=== PATIENT | male | born 1955 | race Caucasian/White ===

== ENCOUNTER 2018-05-01 09:11 | Emergency (ER) | payer OTHER ==
--- NOTE | 2018-05-01 09:56 | ED ---
Abdominal Pain/Male - HPI Summary HPI Summary: Patient is a 63-year-old male with history of diverticulitis presenting to the ED with chief complaint of lower abdominal pain, bloating, and distention. Denies any history of abdominal surgeries. Diverticulitis episode was 3 years ago and treated with by mouth antibiotics successfully. He states he has been doing better with his diet, until recently when he began to eat more seedy foods. Denies any nausea or vomiting. Last bowel movement yesterday and normal. He states he has been having regular bowel movements and does not feel he is constipated, however he has decreased gas. Denies any burping. Over the past 2 days, symptoms have been worsening. Pain is noted to be at 7/10, stabbing, constant and better with rest. - History of Current Complaint Chief Complaint: EDAbdPain Stated Complaint: ABD PAIN Hx Obtained From: Patient Onset/Duration: Sudden Onset Timing: Constant Severity Initially: Moderate Severity Currently: Moderate Pain Intensity: 7 Pain Scale Used: 0-10 Numeric Radiates: No Character: Sharp Aggravating Factor(s): Food Associated Signs And Symptoms: Negative: Fever, Cough, Chest Pain, Constipation , Urinary Symptoms, Decreased Appetite, Vomiting - Risk Factors Testicular Torsion: Negative Cardiac Risk Factors: Negative - Allergies/Home Medications Allergies/Adverse Reactions: Allergies Allergy/AdvReac Type Severity Reaction Status Date / Time No Known Allergies Allergy Verified 05/01/18 09:14 Home Medications: Home Medications Albuterol HFA INHALER* [Ventolin HFA Inhaler*] 1 - 2 puff INH Q4HR PRN 05/01/18 [History Confirmed 05/01/18] PMH/Surg Hx/FS Hx/Imm Hx Previously Healthy: Yes Respiratory History: Reports: Hx Chronic Obstructive Pulmonary Disease (COPD), Other Respiratory Problems/Disorders - COPD GI History: Reports: Hx Gastroesophageal Reflux Disease - HEARTBURN Musculoskeletal History: Reports: Other Musculoskeletal History - BILATERAL HANDS R/T BROKEN BONES YEARS AGO Sensory History: Reports: Hx Cataracts - LEFT Denies: Hx Contacts or Glasses, Hx Hearing Aid Opthamlomology History: Reports: Hx Cataracts - LEFT Denies: Hx Contacts or Glasses Psychiatric History: Reports: Hx Anxiety - R/T UPCOMING PROCEDURE - Immunization History Hx Pertussis Vaccination: No Immunizations Up to Date: Unable to Obtain/Confirm Infectious Disease History: No Infectious Disease History: Denies: Traveled Outside the US in Last 30 Days - Social History Occupation: Employed Full-time Lives: Alone Alcohol Use: Daily Alcohol Amount: 2-3beers/day Hx Substance Use: Yes Substance Use Type: Reports: Marijuana Substance Use Comment - Amount & Last Used: occasionally Hx Tobacco Use: Yes Smoking Status (MU): Light Every Day Tobacco Smoker Review of Systems Constitutional: Negative Negative: Fever, Chills, Skin Diaphoresis Negative: Palpitations, Chest Pain Negative: Shortness Of Breath, Cough Positive: Abdominal Pain. Negative: Vomiting, Diarrhea, Nausea Genitourinary: Negative Positive: no symptoms reported, see HPI Negative: Rash Negative: Headache Negative: Anxious All Other Systems Reviewed And Are Negative: Yes Physical Exam Triage Information Reviewed: Yes Vital Signs On Initial Exam: Initial Vitals Temp Pulse Resp BP Pulse Ox 98.3 F 78 16 133/99 95 05/01/18 09:14 05/01/18 09:14 05/01/18 09:14 05/01/18 09:14 05/01/18 09:14 Vital Signs Reviewed: Yes Appearance: Positive: Well-Appearing, Well-Nourished Skin: Positive: Warm, Skin Color Reflects Adequate Perfusion Head/Face: Positive: Normal Head/Face Inspection Eyes: Positive: EOMI, MICKEY, Conjunctiva Clear Neck: Positive: Supple, No Lymphadenopathy Respiratory/Lung Sounds: Positive: Clear to Auscultation, Breath Sounds Present Cardiovascular: Positive: RRR, Pulses are Symmetrical in both Upper and Lower Extremities Abdomen Description: Positive: Soft, Other: - tenderness to lower abdomen Bowel Sounds: Positive: Present Musculoskeletal: Positive: Normal, Strength/ROM Intact Neurological: Positive: Sensory/Motor Intact, Alert, Oriented to Person Place, Time, Speech Normal Psychiatric: Positive: Normal, Affect/Mood Appropriate Diagnostics - Vital Signs Vital Signs Temp Pulse Resp BP Pulse Ox 05/01/18 09:42 73 145/96 96 05/01/18 09:14 98.3 F 78 16 133/99 95 - Laboratory Result Diagrams: 05/01/18 09:52 05/01/18 09:52 Lab Statement: Any lab studies that have been ordered have been reviewed, and results considered in the medical decision making process. Abdominal Pain Fem Course/Dx - Course Course Of Treatment: During the course treatment, the patient is evaluated for lower abdominal pain. He denies any UTI symptoms, however the pain is mostly suprapubically. On physical examination there is diffuse tenderness to the lower abdomen, worse to the left side and denies any pain to the right lower quadrant on deep palpation. While this could be a UTI versus diverticulitis, CT abdomen/pelvis obtained to assess for partial obstruction. Vital signs are stable on arrival. Labs obtained and are unremarkable. CT: IMPRESSION: CT FINDINGS OF UNCOMPLICATED DIVERTICULITIS OF THE SIGMOID COLON. Patient made aware of results. He is given 10 days ciprofloxacin and Flagyl as per uncomplicated diverticulitis protocol. At this time I do not believe he requires admission to the hospital as he is afebrile, complains of 3/10 pain and continues to be able to eat and drink okay. He is given strict return precautions. - Diagnoses Provider Diagnoses: Diverticulitis Discharge - Sign-Out/Discharge Documenting (check all that apply): Discharge/Admit/Transfer - Discharge Plan Condition: Stable Disposition: HOME Prescriptions: Ciprofloxacin TAB* [Cipro 500 MG TAB*] 500 mg PO BID #20 tab metroNIDAZOLE [Flagyl 500 MG TAB] 500 mg PO TID #30 tab Patient Education Materials: Diverticulitis (ED), Diverticulitis Diet (ED) Referrals: King Rivera MD [Primary Care Provider] - Additional Instructions: If he develop any fevers, sweats, chills, worsening pain, nausea, vomiting, return to the ED immediately DO NOT DRINK ANY ALCOHOL WHILE TAKING THIS MEDICATION Please follow-up with your doctor I have given you information on diverticulitis diet - Billing Disposition and Condition Condition: STABLE Disposition: Home
[2018-05-01 10:02] LABS: ABS Basophils 0 10^3/ul (0-0.2); ABS Eosinophils 0.3 10^3/ul (0-0.6); ABS Lymphocytes 1.8 10^3/ul (1.0-4.8); ABS Monocytes 0.9 10^3/ul (0-0.8); ABS Neutrophils 6.2 10^3/ul (1.5-7.7); ABS Nucleated RBC 0 10^3/ul; Hematocrit 50 % (42-52); Lymphocyte % 19.3 % (25-47); Mean Corpuscular HGB Conc 34 g/dl (31-36); Mean Corpuscular Hemoglobin 32 pg (27-31); Mean Corpuscular Volume 94 fL (80-94); Mean Platelet Volume 8.6 um3 (7.4-10.4); Nucleated Red Blood Cells % 0.1; Platelet Count 152 10^3/ul (150-450); Red Blood Count 5.27 10^6/ul (4.00-5.40); Red Cell Distribution Width 13 % (10.5-15); White Blood Count 9.3 10^3/ul (3.5-10.8)
[2018-05-01 10:03] LABS: Urine Appearance Clear; Urine Blood Negative (Negative); Urine Color Yellow; Urine Ketones 1+ (Negative); Urine Protein Negative (Negative); Urine Specific Gravity 1.017 (1.010-1.030); Urine Urobilinogen Negative (Negative)
[2018-05-01 10:18] LABS: EGFR Non-African American 88.9 (>60)
[2018-05-01] MEDS ORDERED: Iohexol 300* (CONTRAST) 10 ML SDV IV ONE (12:04)
--- NOTE | 2018-05-01 12:32 | RAD ---
INDICATION: Abdominal pain.. Small bowel obstruction versus diverticulitis Chronic hepatitis. COMPARISON: CT November 11, 2012 TECHNIQUE: Axial source images were obtained from the hemidiaphragms to the symphysis pubis following administration of oral and intravenous contrast. 100 mL Omnipaque 300 was utilized. Coronal and sagittal reconstructed images were acquired. Lung bases: The lung bases are clear. Liver: The liver is normal in size. There are no masses. There is no ductal dilatation. Gallbladder: There are no calcified gallstones. There is no evidence of wall thickening or pericholecystic fluid. Spleen: The spleen is normal in size. There are no masses. Pancreas: There is no focal pancreatic mass or ductal dilatation. Adrenal glands: There is no evidence of adrenal mass. Kidneys: The kidneys are normal in size and position. There are prompt nephrograms and there is prompt excretion bilaterally. There are no renal parenchymal masses. There is no evidence of nephrolithiasis. Adenopathy: There is no evidence of adenopathy by size criteria. Fluid collections: There is perienteric stranding adjacent to the sigmoid colon (see below). Vessels:There are no significant atherosclerotic changes involving the aorta. There is no focal aneurysm. The iliac vessels are normal in caliber. The IVC appears normal. GI tract: The upper GI tract is unremarkable. There are diverticula of the sigmoid colon. There is mural thickening with perienteric stranding at the level the mid and distal sigmoid colon consistent with acute diverticulitis. There are no findings of obstruction or perforation. Pelvic organs: The prostate and seminal vesicles appear normal Bladder: There are no bladder masses. Abdominal and pelvic soft tissues: The extraperitoneal abdominal and pelvic soft tissues appear normal.. Osseous structures: There are no acute osseous findings. Other: None IMPRESSION: CT FINDINGS OF UNCOMPLICATED DIVERTICULITIS OF THE SIGMOID COLON.
[2018-05-01 13:27] VITALS: BP 141/97
== END 2018-05-01 13:26 | disposition home or self-care (01) ==
LOC: ED 09:11
DX: K57.32 Diverticulitis of large intestine without perforation or abscess without bleeding (principal); F17.200 Nicotine dependence, unspecified, uncomplicated
CPT/HCPCS: 36415; 74177; 80053; 81003; 83605; 83690; 83735; 85025; 86140; 99282; Q9967

== ENCOUNTER 2018-05-25 18:53 | Emergency (ER) | payer OTHER ==
[2018-05-25] MEDS ORDERED: Albuterol/Ipratropium NEB.SOL* Albuterol 2.5 MG/Ipratropium 0.5 MG 3 ML ONE (19:50)
--- NOTE | 2018-05-25 19:51 | RAD ---
INDICATION: Short of breath COMPARISON: November 11, 2015 TECHNIQUE: PA and lateral dual-energy views were obtained. FINDINGS: Bones/Soft Tissues: There are no acute bony findings. There is osteopenia with kyphosis Cardiomediastinal: The cardiomediastinal silhouette is normal. Lungs: There are no infiltrates. There is mild hyperinflation Pleura: There are no pleural effusions. Other: None IMPRESSION: HYPERINFLATION. NO ACTIVE DISEASE
[2018-05-25] MEDS ORDERED: Albuterol 2.5 MG/3 ML NEB.SOL* (0.083%) INH ONE (19:55)
[2018-05-25] MEDS ORDERED: methylPREDNISolone 125 MG* 2 ML VIAL IV ONE (19:56)
[2018-05-25] MEDS ORDERED: Albuterol/Ipratropium NEB.SOL* Albuterol 2.5 MG/Ipratropium 0.5 MG 3 ML INH ONE (19:56)
--- NOTE | 2018-05-25 20:06 | ED ---
Shortness of Breath - HPI Summary HPI Summary: This patient is a 63 year old M presenting to [facility] with a chief complaint of SOB since 4 or 5 days ago. He endorses productive cough, SOB, left lateral CP secondary to cough. Pt denies fever, smoking in last 4 days, O2 use at home, and previous intubation. He endorses using symbicort, and that his last cigarette was 4 days ago. No 02 at home, never intubated, uses symbicort. Pt denies PMHx [place]. - History of Current Complaint Chief Complaint: EDShortnessOfBreath Time Seen by Provider: 05/25/18 19:48 Hx Obtained From: Patient Onset/Duration: Gradual Onset, Lasting Days, Still Present Current Severity: Severe Dyspnea At: Rest Aggrevating Factors: Other - cough Alleviating Factors: Nothing Associated Signs & Symptoms: Cough (Productive), Wheezing, Chest Pain w/Cough - Allergy/Home Medications Allergies/Adverse Reactions: Allergies Allergy/AdvReac Type Severity Reaction Status Date / Time No Known Allergies Allergy Verified 05/01/18 09:14 PMH/Surg Hx/FS Hx/Imm Hx Endocrine/Hematology History: Denies: Hx Diabetes Cardiovascular History: Denies: Hx Hypertension Respiratory History: Reports: Hx Chronic Obstructive Pulmonary Disease (COPD), Other Respiratory Problems/Disorders - COPD GI History: Reports: Hx Gastroesophageal Reflux Disease - HEARTBURN Musculoskeletal History: Reports: Other Musculoskeletal History - BILATERAL HANDS R/T BROKEN BONES YEARS AGO Sensory History: Reports: Hx Cataracts - LEFT Denies: Hx Contacts or Glasses, Hx Hearing Aid Opthamlomology History: Reports: Hx Cataracts - LEFT Denies: Hx Contacts or Glasses Psychiatric History: Reports: Hx Anxiety - R/T UPCOMING PROCEDURE Infectious Disease History: No Infectious Disease History: Denies: Traveled Outside the [place] in Last 30 Days - Family History Known Family History: Negative: Cardiac Disease, Other - [place] - Social History Alcohol Use: Daily Alcohol Amount: 2-3beers/day Hx Substance Use: Yes Substance Use Type: Reports: Marijuana Substance Use Comment - Amount & Last Used: occasionally Hx Tobacco Use: Yes Smoking Status (MU): Light Every Day Tobacco Smoker Review of Systems Negative: Fever Positive: Chest Pain - secondary to cough Positive: Shortness Of Breath, Cough - productive All Other Systems Reviewed And Are Negative: Yes Physical Exam - Summary Physical Exam Summary: Appearance: Well appearing, no pain distress Skin: warm, dry, reflects adequate perfusion Head/face: normal Eyes: EOMI, MICKEY ENT: normal Neck: supple, non-tender Respiratory: bilateral wheeze, breath sounds present Cardiovascular: RRR, pulses symmetrical Abdomen: non-tender, soft Bowel: present Musculoskeletal: normal, strength/ROM intact Neuro: normal, sensory motor intact, A&Ox3 Triage Information Reviewed: Yes Vital Signs On Initial Exam: Initial Vitals Temp Pulse Resp BP Pulse Ox 98.1 F 86 24 129/99 93 05/25/18 19:02 05/25/18 19:02 05/25/18 19:02 05/25/18 19:02 05/25/18 19:02 Vital Signs Reviewed: Yes Diagnostics - Vital Signs Vital Signs Temp Pulse Resp BP Pulse Ox 05/25/18 19:02 98.1 F 86 24 129/99 93 - Laboratory Result Diagrams: 05/25/18 20:03 05/25/18 20:03 Lab Statement: Any lab studies that have been ordered have been reviewed, and results considered in the medical decision making process. - Radiology CXR Xray Interpretation: No Acute Changes Radiology Interpretation Completed By: Radiologist - Hyperinflation, no active disease. Dr. Garcia has reviewed this report. - EKG 1930 Cardiac Rate: NL - 71 EKG Rhythm: Sinus Rhythm EKG Interpretation: no acute changes EKG Comparison: No Significant Change Course/Dx - Course Course Of Treatment: A 63-year-old M presents to the ED with a CC of SOB for te past 4-5 days. (+) SOB, productive cough, and CP secondary to cough. (-) fever, cigarette in past 4 days, previous intubation. PMHx COPD, emphyseam. A CXR reveals hyperinflation but is otherwise (-). An EKG reveals sinus rythym 71 BPM , no acute changes. In the ED course, pt was given ventolin, duoneb, and solumedrol. - Diagnoses Provider Diagnoses: COPD exacerbation - Physician Notifications Discussed Care of Patient With: Jacy Lord Time Discussed With Above Provider: 21:34 Instructed by Provider To: Other - Dr. Lord will evaluate pt in ED. Discharge - Sign-Out/Discharge Documenting (check all that apply): Patient Departure - discharge - Discharge Plan Condition: Stable Disposition: HOME Prescriptions: Albuterol HFA INHALER* [Ventolin HFA Inhaler*] 2 puff INH Q6H PRN #1 mdi MDD 3 PRN Reason: Sob/Wheezing Azithromycin TAB* [Zithromax TAB (Z-TIRSO) 250 mg #6 tabs] 250 mg PO DAILY #4 tab Budesonide/Formote 160/4.5(NF) [Symbicort 160/4.5 (NF)] 1 puff INH BID #1 mdi predniSONE [Prednisone 20 MG TAB] 60 mg PO ONCE #5 tablet Patient Education Materials: COPD (Chronic Obstructive Pulmonary Disease) (ED) Referrals: King Rivera MD [Primary Care Provider] - 3 Days Additional Instructions: RETURN TO THE EMERGENCY DEPARTMENT FOR ANY NEW OR WORSENING SYMPTOMS. - Billing Disposition and Condition Condition: STABLE Disposition: Home
[2018-05-25 20:17] LABS: ABS Basophils 0 10^3/ul (0-0.2); ABS Lymphocytes 2.1 10^3/ul (1.0-4.8); ABS Monocytes 0.8 10^3/ul (0-0.8); ABS Neutrophils 3.5 10^3/ul (1.5-7.7); ABS Nucleated RBC 0 10^3/ul; Eosinophil % 13.5 % (0-6); Hematocrit 48 % (42-52); Hemoglobin 16.3 g/dl (14.0-18.0); Lymphocyte % 28.3 % (25-47); Mean Corpuscular HGB Conc 34 g/dl (31-36); Mean Corpuscular Hemoglobin 32 pg (27-31); Mean Corpuscular Volume 93 fL (80-94); Mean Platelet Volume 8.7 um3 (7.4-10.4); Nucleated Red Blood Cells % 0.1; Platelet Count 153 10^3/ul (150-450); Red Blood Count 5.13 10^6/ul (4.00-5.40); Red Cell Distribution Width 13 % (10.5-15); White Blood Count 7.4 10^3/ul (3.5-10.8)
[2018-05-25 20:41] LABS: EGFR Non-African American 82.3 (>60)
[2018-05-25] MEDS ORDERED: Azithromycin TAB* 250 MG PO ONE (22:56)
[2018-05-25] MEDS ORDERED: Azithromycin TAB* 250 MG ONE (22:58)
[2018-05-25 23:08] VITALS: BP 118/68
--- NOTE | 2018-05-26 01:28 | CONS ---
CC: King Rivera MD * CONSULTATION REPORT: DATE OF CONSULT: 05/25/18 TIME OF EVALUATION: 2099 PRIMARY CARE PHYSICIAN: King Rivera MD REQUESTING PHYSICIAN FOR CONSULT: Dr. Garcia. REASON FOR CONSULT: Evaluation for admission. HISTORY OF PRESENT ILLNESS: This is a 63-year-old male with past medical history of COPD, on room air and tobacco use who presented to the emergency room with 3 days of shortness of breath. The patient states he has been short of breath for the past 1-1/2 weeks but it got more significant over the past 3 days. He quit smoking and drinking 3 days ago. He has been smoking for about a pack a day for the past 3 years off and on. He has had increase in cough, sputum production. No chest pain. No nausea, vomiting, diarrhea. No diaphoresis. No abdominal pain. No fevers or chills. He does have an albuterol nebulizer that he was using at home but no improvement. He states he has Symbicort. He was using Symbicort but then he was switched to another inhaler that does not work as well as Symbicort. He called trying to get back to Symbicort, but they were unable to do so. He came to the emergency room for further evaluation. In the emergency room, the patient had labs, imaging. He was given Solu-Medrol, DuoNeb and was referred to the hospitalist service for further evaluation. PAST MEDICAL HISTORY: 1. COPD, on room air. 2. History of diverticulitis. MEDICATIONS: 1. Albuterol nebulizer as needed. 2. He is also on another inhaler, he is not sure of the name. 3. Claritin as needed. ALLERGIES: No known drug allergies. FAMILY HISTORY: Reviewed and noncontributory. SOCIAL HISTORY: The patient works construction. As mentioned, he quit smoking 3 days ago due to shortness of breath, but he does smoke a pack per day for the past 3 years off and on. He does drink 2 to 3 beers or whiskey a day. His healthcare proxy is his daughter, Yu Mosqueda. CODE STATUS: Full code. REVIEW OF SYSTEMS: A 14-point review of systems as mentioned in the HPI, otherwise negative. PHYSICAL EXAM: Vitals: Temp 98, pulse rate 86, respiratory rate 24, oxygen saturation 98% on room air, blood pressure 139/99. General: In no acute distress, intermittently coughing. HEENT: Head is normocephalic. Pupils are equal and reactive. Anicteric. Oropharynx: Mucous membranes are moist. Neck : Supple. No lymphadenopathy. Cardiac: Regular rate and rhythm. Soft systolic murmur heard throughout. Respiratory: Diminished breath sounds. Prolonged expiratory phase. Faint bilateral expiratory wheezing. No increased work of breathing, no retractions. Abdomen: Soft, nondistended, nondistended. Extremities: No clubbing, cyanosis, or edema. +2 DPs. Neurologic: Alert and oriented x3. No gross focal neurologic deficits. DIAGNOSTIC STUDIES/LAB DATA: White count 7.4, hemoglobin 16.3, hematocrit 48, platelets 153,000. Sodium 140, potassium 4.3, chloride 106, bicarb 26, BUN 13, creatinine 0.93, glucose 101, troponin is 0, BNP is 44. Radiographic data: Chest x-ray shows hyperinflation. No active disease. EKG shows normal sinus rhythm, left anterior fascicular block. No significant changes. ASSESSMENT AND PLAN: This is a 63-year-old male with past medical history of chronic obstructive pulmonary disease and tobacco use, who presented to the emergency room with shortness of breath and cough. The patient on room air at rest. Respiratory therapist came and ambulated him for 6 minutes. His saturations remained above 91%. He does not meet criteria for admission. No evidence of respiratory distress. DIAGNOSIS: Chronic obstructive pulmonary disease exacerbation likely secondary to a viral illness. I recommended discharge with close followup with Dr. Rivera including prescription at home for steroids, antibiotics, cough suppressants and to continue with albuterol nebulizer and inhaler with a chamber as needed for shortness of breath and wheezing. I discussed my recommendations with Dr. Garcia who is going to send him home. The patient discussed that he is going to quit smoking and quit drinking as well. This was an eye machine scallop cutter for him and I agreed that this will be beneficial for him. TIME SPENT: Greater than 40 minutes were spent doing the consultation, more than half the time spent in direct patient contact. [id number]/[facility] #: [id number] MTDD
== END 2018-05-25 23:07 | disposition home or self-care (01) ==
LOC: ED 18:53
DX: J44.1 Chronic obstructive pulmonary disease with (acute) exacerbation (principal); R05 Cough; R07.89 Other chest pain; F17.200 Nicotine dependence, unspecified, uncomplicated
CPT/HCPCS: 36415; 71046; 80053; 83605; 83880; 84484; 85025; 87040; 93005; 96374; 99284; A9270-GY; J2930

== ENCOUNTER 2018-10-17 07:17 | Day surgery (SDC) | payer OTHER ==
[~2018-10-17 07:17] MED LIST: Acetaminophen TAB* 325 MG PO PRN; Buffered Lidocaine 0.9% SYRIN* 5 ML/SYR SYRINGE INTRADERM ONE
[2018-10-17] MEDS ORDERED: Midazolam* 1 MG/ML 2 ML VIAL (2 MG) ONE (07:57)
[2018-10-17] MEDS ORDERED: fentaNYL* 50 MCG/ML 2 ML VIAL (100 MCG VIAL) ONE (07:57)
[2018-10-17] MEDS ORDERED: Cyclopentolate 1% OPTH.SOL* 2 ML BTL ONE (08:41)
[2018-10-17] MEDS ORDERED: Tropicamide 1% OPTH.SOL* BTL ONE (08:41)
[2018-10-17] MEDS ORDERED: acetaZOLAMIDE TAB* 250 MG ONE (08:41)
[2018-10-17] MEDS ORDERED: Povidone Iodine 5% OPTH* 30 ML BTL ONE (08:41)
[2018-10-17] MEDS ORDERED: Lidocaine 1%* 5 ML VIAL ONE (08:41)
[2018-10-17] MEDS ORDERED: Ketorolac 0.5% OPHTH (NF) 0.5 % 5 ML BTL ONE (08:41)
[2018-10-17] MEDS ORDERED: Tetracaine 0.5% OPTH.SOL 4 ML* 1 DROP BTL ONE (08:41)
[2018-10-17] MEDS ORDERED: Phenylephrine 2.5% OPTH.SOL* 2 ML BTL ONE (08:41)
[2018-10-17] MEDS ORDERED: Neomycin/Polymy/Dex OPHTH.OIN* 3.5 GM ONE (08:41)
[2018-10-17 08:49] VITALS: BP 115/81
--- NOTE | 2018-10-17 11:03 | OP ---
DATE OF OPERATION: 10/17/18 - [facility] DATE OF : 57. SURGEON: Reji Hager MD. ANESTHESIA: Monitored anesthesia care. PREOPERATIVE DIAGNOSIS: Cataract, right eye. POSTOPERATIVE DIAGNOSIS: Cataract, right eye. OPERATIVE PROCEDURE: Extracapsular cataract extraction of the right eye with intraocular lens implant. IMPLANT: SN60WF 20.0 diopter lens to the right eye. COMPLICATIONS: None. DESCRIPTION OF PROCEDURE: The patient was given phenylephrine 2.5 % and cyclopentolate 1% eye drops to the operative eye in the preoperative area. The patient was taken to the operating room where a time-out was taken to identify the correct patient, site, and side of surgery. The patient's right eye was prepped and draped in the usual sterile fashion with 5% Betadine. A second time- out was taken to verify the correct patient, side, and site of surgery, as well as the correct lens implant. A lid speculum was placed to the right eye. A 1mm paracentesis blade was used to make a clear corneal incision. Preservative-free 1% lidocaine was injected into the anterior chamber. DisCoVisc was then injected into the anterior chamber. A 2.75 mm keratome blade was used to make a triplanar incision. A cystotome initiated a capsulorrhexis, which was completed with Utrata forceps in a continuous and curvilinear manner. Hydrodissection of the lens was performed with BSS on a cannula. The lens could be spun in a capsular bag. The phacoemulsification handpiece was used with a divide-and- conquer technique to remove the nucleus. The I/A handpiece then removed the residual cortical lens material. DisCoVisc was injected to inflate the capsular bag. The planned SN60WF 20.0 diopter lens was injected into the capsular bag. The residual DisCoVisc was removed from the eye with the I/A handpiece. The corneal incisions were hydrated and no leaks occurred at physiologic pressure around 20 mmHg per palpation. The lid speculum was removed and drapes were removed. Maxitrol ointment was placed to the surface of the operative eye. An adhesive patch and shield was then placed on the operative eye. The patient was taken to the postoperative area in stable condition. [id number]/[facility] #: [id number] [facility]
== END 2018-10-17 09:01 | disposition home or self-care (01) ==
LOC: OREAST 07:17
PROVIDERS: ATTEND Student in an Organized Health Care Education/Training Program
DX: H25.11 Age-related nuclear cataract, right eye (principal); H20.012 Primary iridocyclitis, left eye; H35.342 Macular cyst, hole, or pseudohole, left eye; J45.909 Unspecified asthma, uncomplicated; F17.210 Nicotine dependence, cigarettes, uncomplicated
CPT/HCPCS: A9270-GY; J2250; J3010; V2632

== ENCOUNTER 2019-02-19 11:06 | Emergency (ER) | payer SELFPAY ==
[2019-02-19] MEDS ORDERED: Albuterol/Ipratropium NEB.SOL* Albuterol 2.5 MG/Ipratropium 0.5 MG 3 ML INH ONE (11:31)
[2019-02-19] MEDS ORDERED: methylPREDNISolone 125 MG* 2 ML VIAL IV ONE (11:31)
--- NOTE | 2019-02-19 11:34 | ED ---
Shortness of Breath - HPI Summary HPI Summary: This patient is a 64 year old M presenting to [facility] with a chief complaint of increased SOB since 2 weeks ago. The patient reports his symptoms worsened today at 07:00. Symptoms aggravated by nothing. Symptoms alleviated by nothing. Patient reports productive cough with clear sputum and chest tightness. Patient uses albuterol inhaler but notes that he ran out 2-3 days ago because his insurance lapsed. Patient also takes symbicort. - History of Current Complaint Chief Complaint: EDShortnessOfBreath Time Seen by Provider: 02/19/19 11:24 Hx Obtained From: Patient Onset/Duration: Gradual Onset, Lasting Weeks - 2 weeks, Worse Since - 07:00 Timing: Constant Current Severity: Moderate Dyspnea At: Rest Aggrevating Factors: Nothing Alleviating Factors: Nothing Associated Signs & Symptoms: Cough (Productive), Chest Pain w/Cough - Allergy/Home Medications Allergies/Adverse Reactions: Allergies Allergy/AdvReac Type Severity Reaction Status Date / Time No Known Allergies Allergy Verified 10/17/18 07:25 PMH/Surg Hx/FS Hx/Imm Hx Endocrine/Hematology History: Denies: Hx Diabetes Cardiovascular History: Denies: Hx Hypertension, Other Cardiovascular Problems/Disorders Respiratory History: Reports: Hx Chronic Obstructive Pulmonary Disease (COPD), Other Respiratory Problems/Disorders - COPD GI History: Reports: Hx Gastroesophageal Reflux Disease - HEARTBURN Musculoskeletal History: Reports: Other Musculoskeletal History - BILATERAL HANDS R/T BROKEN BONES YEARS AGO Sensory History: Reports: Hx Cataracts - [place], Hx Contacts or Glasses - readers Denies: Hx Hearing Aid Opthamlomology History: Reports: Hx Cataracts - [place], Hx Contacts or Glasses - readers Neurological History: Denies: Other Neuro Impairments/Disorders Psychiatric History: Reports: Hx Anxiety - Surgical History Surgery Procedure, Year, and Place: left cataract, 2013 Hx Anesthesia Reactions: No Infectious Disease History: No Infectious Disease History: Reports: Hx Hepatitis - hep c Denies: Traveled Outside the [place] in Last 30 Days - Family History Known Family History: Negative: Cardiac Disease, Other - [place] - Social History Alcohol Use: Daily Alcohol Amount: 2-3beers/day Hx Substance Use: Yes Substance Use Type: Reports: Marijuana Substance Use Comment - Amount & Last Used: not now Hx Tobacco Use: Yes Smoking Status (MU): Light Every Day Tobacco Smoker Amount Used/How Often: 5-6 cigs per day Review of Systems Negative: Fever Negative: Epistaxis Positive: Chest Pain - chest tightness Positive: Shortness Of Breath, Cough - productive with clear sputum Negative: Vomiting All Other Systems Reviewed And Are Negative: Yes Physical Exam - Summary Physical Exam Summary: Appearance: The patient is well-nourished in no acute distress and in no acute pain. Skin: The skin is warm and dry and skin color reflects adequate perfusion. HEENT: The head is normocephalic and atraumatic. The pupils are equal and reactive. The conjunctivae are clear and without drainage. Nares are patent and without drainage. Mouth reveals moist mucous membranes and the throat is without erythema and exudate. The external ears are intact. The ear canals are patent and without drainage. The tympanic membranes are intact. Neck: The neck is supple with full range of motion and non-tender. There are no carotid bruits. There is no neck vein distension. Respiratory: Chest is non-tender. Increased AP diameter, Increased E to I ratio , and diffuse expiratory wheezes Cardiovascular: Heart is regular rate and rhythm. There is no murmur or rub auscultated. There is no peripheral edema and pulses are symmetrical and equal. Abdomen: The abdomen is soft and non-tender. There are normal bowel sounds heard in all four quadrants and there is no organomegaly palpated. Musculoskeletal: There is no back tenderness noted. Extremities are non-tender with full range of motion. There is good capillary refill. There is no peripheral edema or calf tenderness elicited. Neurological: Patient is alert and oriented to person, place and time. The patient has symmetrical motor strength in all four extremities. Cranial nerves are grossly intact. Deep tendon reflexes are symmetrical and equal in all four extremities. Psychiatric: The patient has an appropriate affect and does not exhibit any anxiety or depression Triage Information Reviewed: Yes Vital Signs On Initial Exam: Initial Vitals Temp Pulse Resp BP Pulse Ox 98.3 F 92 24 152/89 95 02/19/19 11:08 02/19/19 11:08 02/19/19 11:08 02/19/19 11:08 02/19/19 11:08 Vital Signs Reviewed: Yes Diagnostics - Vital Signs Vital Signs Temp Pulse Resp BP Pulse Ox 02/19/19 11:08 98.3 F 92 24 152/89 95 - Laboratory Result Diagrams: 02/19/19 11:27 02/19/19 11:27 Lab Statement: Any lab studies that have been ordered have been reviewed, and results considered in the medical decision making process. - Radiology CXR Radiology Interpretation Completed By: Radiologist Summary of Radiographic Findings: IMPRESSION: 1. FINDINGS CONSISTENT WITH COPD , NO EVIDENCE FOR ACUTE DISEASE. 2. MULTIPLE CHRONIC DORSAL VERTEBRAL BODY COMPRESSION FRACTURES. Dr. Bishop has reviewed this report. - EKG 11:16 Cardiac Rate: NL - at 84 bpm EKG Rhythm: Sinus Rhythm ST Segment: Normal Ectopy: None Summary of EKG Findings: Sinus rhythm at 84 bpm, no ectopy, nml ST, no STEMI Course/Dx - Course Course Of Treatment: Mr. Whiting presented with a concern that his COPD is getting out of control. He's been having a little bit of a flareup with no symptoms of recent infection. He recently lost his insurance and so his meds have petered out and he is now out of all of his respiratory medications. They were helping. He was nontoxic in appearance with stable vitals on arrival but clearly suffering from COPD and somewhat tight. He improved a lot with a simple DuoNeb and Solu-Medrol while workup revealed no sign of an acute infectious process. Urgent Rx helped to bridge him as he thinks he will be getting his insurance back in the next couple of weeks. I recommended close follow-up with his PCP and to return for any problems. - Diagnoses Provider Diagnoses: COPD exacerbation Discharge - Sign-Out/Discharge Documenting (check all that apply): Patient Departure - discharge home Patient Received Moderate/Deep Sedation with Procedure: No - Discharge Plan Condition: Stable Disposition: HOME Prescriptions: Albuterol 0.5% CONC NEB.MONA* 1 mg .SEE ORDER Q6HR #120 neb.soln Albuterol 0.5% CONC NEB.MONA* 1 mg .SEE ORDER Q6HR #120 neb.soln Albuterol HFA INHALER* [Ventolin HFA Inhaler*] 1 puff INH Q4H PRN #1 mdi PRN Reason: Shortness Of Breath Albuterol HFA INHALER* [Ventolin HFA Inhaler*] 1 puff INH Q4H PRN #1 mdi PRN Reason: Shortness Of Breath methylPREDNISolone [Medrol Dosepak 4 MG*] 4 mg PO .SEE TIRSO INSTRUCTION #1 tab methylPREDNISolone [Medrol Dosepak 4 MG*] 4 mg PO .SEE TIRSO INSTRUCTION #1 tab Patient Education Materials: COPD (Chronic Obstructive Pulmonary Disease) (ED) Referrals: King Rivera MD [Primary Care Provider] - 2 Days Additional Instructions: Follow up with your primary care physician in 2-3 days. Return to the emergency room with any new or worsening symptoms. - Billing Disposition and Condition Condition: STABLE Disposition: Home - Attestation Statements Document Initiated by Scribe: Yes Documenting Scribe: Trina Henriquez Provider For Whom Fan is Documenting (Include Credential): Sameer Bishop MD Scribe Attestation: Trina Juan, scribed for Sameer Bishop MD on 02/19/19 at 6. Scribe Documentation Reviewed: Yes Provider Attestation: The documentation as recorded by the Trina rouse accurately reflects the service I personally performed and the decisions made by Sameer ariza MD Status of Scribe Document: Viewed
[2019-02-19 11:41] LABS: ABS Basophils 0.1 10^3/ul (0-0.2); ABS Eosinophils 0.6 10^3/ul (0-0.6); ABS Lymphocytes 1.1 10^3/ul (1.0-4.8); ABS Monocytes 0.8 10^3/ul (0-0.8); ABS Neutrophils 2.6 10^3/ul (1.5-7.7); ABS Nucleated RBC 0 10^3/ul; Eosinophil % 11.4 %; Hematocrit 50 % (36-46); Hemoglobin 16.9 g/dL (14.0-18.0); Lymphocyte % 20.7 %; Mean Corpuscular HGB Conc 34 g/dL (31-36); Mean Corpuscular Hemoglobin 32 pg (27-31); Mean Corpuscular Volume 94 fL (80-94); Mean Platelet Volume 8.3 fL (7.4-10.4); Nucleated Red Blood Cells % 0; Platelet Count 174 10^3/uL (150-450); Red Blood Count 5.29 10^6 /uL (4.18-5.48); Red Cell Distribution Width 13 % (10.5-15); White Blood Count 5.1 10^3/uL (3.5-10.8)
[2019-02-19 11:58] LABS: Albumin/Globulin Ratio 1.4 (1-3); BUN/Creatinine Ratio 9.8 (8-20); C Reactive Protein 3.07 mg/L (<8.01); Calcium 9.4 mg/dL (8.6-10.3); EGFR African American 100.5 (>60); EGFR Non-African American 83.1 (>60); Globulin 2.9 g/dL (2-4); Potassium 4.4 mmol/L (3.5-5.0); Total Bilirubin 0.5 mg/dL (0.2-1.0); Total Protein 6.9 g/dL (6.4-8.9)
[2019-02-19 13:36] VITALS: BP 140/88
== END 2019-02-19 13:34 | disposition home or self-care (01) ==
LOC: ED 11:06
DX: J44.1 Chronic obstructive pulmonary disease with (acute) exacerbation (principal); R07.9 Chest pain, unspecified; R06.02 Shortness of breath; R05 Cough; F17.210 Nicotine dependence, cigarettes, uncomplicated; K21.9 Gastro-esophageal reflux disease without esophagitis
CPT/HCPCS: 36415; 71046; 80053; 83605; 84484; 85025; 86140; 87040; 93005; 96374; 99283; A9270-GY; J2930

== ENCOUNTER 2019-02-22 10:08 | Emergency (ER) | payer SELFPAY ==
--- NOTE | 2019-02-22 10:23 | ED ---
Upper Extremity Pain - HPI Summary HPI Summary: A 64 y/o M presents to ED with c/o pain to LUE posterior forearm by wrist onset two days ago. Pt was seen in [facility] on 02/19/19 and had an IV placed on his dorsal L forearm and the vein blew. Now that area is hard and painful. Associated sx: mild tingling to L fingers. Denies fever, chills, pain to the rest of the LUE. PMHx: COPD. Denies PMHx CA or blood clots. Hes feeling much better since his visit on 02/19/19. - History of Current Complaint Chief Complaint: EDExtremityUpper Stated Complaint: VEIN INJURY FROM IV PER PT Time Seen by Provider: 02/22/19 10:13 Hx Obtained From: Patient Mechanism Of Injury: Blunt Trauma Onset/Duration: Started Days Ago, Still Present Timing: Constant Severity Initially: Mild Severity Currently: Mild Pain Location: Forearm - L Associated Signs & Symptoms: Positive: Numbness/Tingling - L fingers, Other - neg: chills, pain to the LUE. Negative: Fever - Allergies/Home Medications Allergies/Adverse Reactions: Allergies Allergy/AdvReac Type Severity Reaction Status Date / Time No Known Allergies Allergy Verified 02/22/19 10:15 PMH/Surg Hx/FS Hx/Imm Hx Previously Healthy: No Endocrine/Hematology History: Denies: Hx Diabetes Cardiovascular History: Denies: Hx Hypertension, Other Cardiovascular Problems/Disorders Respiratory History: Reports: Hx Chronic Obstructive Pulmonary Disease (COPD), Other Respiratory Problems/Disorders - COPD GI History: Reports: Hx Gastroesophageal Reflux Disease - HEARTBURN Musculoskeletal History: Reports: Other Musculoskeletal History - BILATERAL HANDS R/T BROKEN BONES YEARS AGO Sensory History: Reports: Hx Cataracts - [place], Hx Contacts or Glasses - readers Denies: Hx Hearing Aid Opthamlomology History: Reports: Hx Cataracts - [place], Hx Contacts or Glasses - readers Neurological History: Denies: Other Neuro Impairments/Disorders Psychiatric History: Reports: Hx Anxiety - Surgical History Surgery Procedure, Year, and Place: left cataract, 2013 Hx Anesthesia Reactions: No Infectious Disease History: No Infectious Disease History: Reports: Hx Hepatitis - hep c Denies: Traveled Outside the [place] in Last 30 Days - Family History Known Family History: Negative: Cardiac Disease, Other - [place] - Social History Occupation: Works From/At Home - SELF Lives: Alone Alcohol Use: Daily Alcohol Amount: 2-3beers/day Hx Substance Use: Yes Substance Use Type: Reports: Marijuana Substance Use Comment - Amount & Last Used: not now Hx Tobacco Use: Yes Smoking Status (MU): Light Every Day Tobacco Smoker Amount Used/How Often: 5-6 cigs per day Review of Systems Negative: Fever, Chills Musculoskeletal: Other - pos: pain to L forearm near wrist, no other pain to LUE Positive: Numbness - "tingling" to L fingers All Other Systems Reviewed And Are Negative: Yes Physical Exam - Summary Physical Exam Summary: Appearance: Well-appearing, Well-nourished, lying in bed comfortable Skin: Warm, dry, no obvious rash. Apparent superficial phlebitis of dorsal superficial vein about the L wrist and a couple inches into the forearm, no tenderness nor swelling proximal to that, the area is not erythematous or warm to suggest infection. Eyes: sclera anicteric, no conjunctival pallor ENT: mucous membranes moist Neck: deferred Respiratory: No signs of respiratory distress Cardiovascular: Appears well perfused, pulses are nml Abdomen: deferred Musculoskeletal: Moving all 4 extremities without obvious discomfort Neurological: Awake and alert, mentation is normal, speech is fluent and appropriate Psychiatric: affect is normal, does not appear anxious or depressed Triage Information Reviewed: Yes Vital Signs On Initial Exam: Initial Vitals Temp Pulse Resp BP Pulse Ox 97.8 F 65 18 169/105 95 02/22/19 10:09 02/22/19 10:09 02/22/19 10:09 02/22/19 10:09 02/22/19 10:09 Vital Signs Reviewed: Yes Diagnostics - Vital Signs Vital Signs Temp Pulse Resp BP Pulse Ox 02/22/19 10:09 97.8 F 65 18 169/105 95 - Laboratory Lab Statement: Any lab studies that have been ordered have been reviewed, and results considered in the medical decision making process. - Ultrasound No standard instances Ultrasound Interpretation Completed By: Radiologist Summary of Ultrasound Findings: TRACE US IMPRESSION: No evidence of deep venous thrombosis of the left upper extremity is present. ED provider has reviewed this report. Course/Dx - Course Course Of Treatment: Pt is a 64 y/o M presenting with L posterior forearm/wrist pain and hardness after blown IV at [facility] on 02/19/19. Limited PE finds apparent superficial phlebitis of dorsal superficial vein about the L wrist and a couple inches into the forearm, no tenderness nor swelling proximal to that, the area is not erythematous or warm to suggest infection. LUE US shows no DVT. Will discharge patient home. - Diagnoses Provider Diagnoses: Superficial thrombophlebitis of arm Discharge - Sign-Out/Discharge Documenting (check all that apply): Patient Departure - DC Patient Received Moderate/Deep Sedation with Procedure: No - Discharge Plan Condition: Good Disposition: HOME Patient Education Materials: Superficial Thrombophlebitis (ED) Referrals: King Rivera MD [Primary Care Provider] - 1 Week (if not healing well) Additional Instructions: I do not expect this to get any worse, if it does, we should see you back here. - Billing Disposition and Condition Condition: GOOD Disposition: Home - Attestation Statements Document Initiated by Fan: Yes Documenting Scribe: Julisa Garcia Provider For Whom Fan is Documenting (Include Credential): Dr. Sameer Lin MD Scribe Attestation: I, maría Sandersed for Dr. Sameer Lin MD on 02/25/19 at 0622. Scribe Documentation Reviewed: Yes Provider Attestation: The documentation as recorded by the Julisa rouse accurately reflects the service I personally performed and the decisions made by me, Dr. Sameer Lin MD Status of Scribe Document: Viewed
[2019-02-22 12:12] VITALS: BP 179/99
== END 2019-02-22 12:09 | disposition home or self-care (01) ==
LOC: ED 10:08
DX: I80.8 Phlebitis and thrombophlebitis of other sites (principal); F17.210 Nicotine dependence, cigarettes, uncomplicated
CPT/HCPCS: 99282

== ENCOUNTER 2019-03-11 16:16 | Emergency (ER) | payer SELFPAY ==
[2019-03-11] MEDS ORDERED: methylPREDNISolone 125 MG* 2 ML VIAL IV ONE (16:56)
[2019-03-11] MEDS ORDERED: NS 0.9% 1000 ML** 1,000 ML IV ONE (16:56)
--- NOTE | 2019-03-11 16:59 | ED ---
Shortness of Breath - HPI Summary HPI Summary: This patient is a 64 year old M presenting to ED with a chief complaint of shortness of breath since four/five days ago. The patient rates the pain 5/10 in severity. Symptoms aggravated at nighttime and lying flat on bed. Symptoms alleviated by nothing. Patient reports productive cough and insomnia. Patient denies fever and chest pain. Patient also has an itchy rash on the left neck spreading upwards to the left ear and back of neck. PMHx of COPD, but no DM, HTN. PSHx of left cataract. No FHx of cardiac disease or [place]. Patient drinks alcohol daily, uses marijuana, and smoked tobacco until 6 days ago. - History of Current Complaint Chief Complaint: EDShortnessOfBreath Time Seen by Provider: 03/11/19 16:42 Hx Obtained From: Patient Onset/Duration: Lasting Days - 4-5 days Current Severity: Mild Dyspnea At: Orthopena Aggrevating Factors: Recumbent Position, Nothing - Night Alleviating Factors: Nothing Associated Signs & Symptoms: Negative - Fever, chest pain, Cough (Productive) - Allergy/Home Medications Allergies/Adverse Reactions: Allergies Allergy/AdvReac Type Severity Reaction Status Date / Time No Known Allergies Allergy Verified 03/11/19 16:24 PMH/Surg Hx/FS Hx/Imm Hx Previously Healthy: No Endocrine/Hematology History: Denies: Hx Diabetes Cardiovascular History: Denies: Hx Hypertension, Other Cardiovascular Problems/Disorders Respiratory History: Reports: Hx Chronic Obstructive Pulmonary Disease (COPD) GI History: Reports: Hx Gastroesophageal Reflux Disease - HEARTBURN Musculoskeletal History: Reports: Other Musculoskeletal History - BILATERAL HANDS R/T BROKEN BONES YEARS AGO Sensory History: Reports: Hx Cataracts - [place], Hx Contacts or Glasses - readers Denies: Hx Hearing Aid Opthamlomology History: Reports: Hx Cataracts - [place], Hx Contacts or Glasses - readers Neurological History: Denies: Other Neuro Impairments/Disorders Psychiatric History: Reports: Hx Anxiety - Surgical History Surgery Procedure, Year, and Place: left cataract, 2012 Hx Anesthesia Reactions: No Infectious Disease History: No Infectious Disease History: Reports: Hx Hepatitis - hep c Denies: Traveled Outside the [place] in Last 30 Days - Family History Known Family History: Positive: Other - Negative [place] Negative: Cardiac Disease - Social History Alcohol Use: Daily Alcohol Amount: 2-3beers/day Hx Substance Use: Yes Substance Use Type: Reports: Marijuana Substance Use Comment - Amount & Last Used: not now Hx Tobacco Use: Yes Smoking Status (MU): Light Every Day Tobacco Smoker Amount Used/How Often: 5-6 cigs per day Review of Systems Constitutional: Other - Cannot lay flat on bed, unable to sleep Negative: Fever Negative: Chest Pain Positive: Shortness Of Breath - Worse at night, Cough - Bringing up phlegm Positive: Rash - Left side of neck Psychological: Other - Insomnia All Other Systems Reviewed And Are Negative: Yes Physical Exam - Summary Physical Exam Summary: VITAL SIGNS: Reviewed. GENERAL: Patient is a well-developed and nourished male who is lying comfortable in the stretcher. Patient is not in any acute respiratory distress. HEAD AND FACE: No signs of trauma. No ecchymosis, hematomas or skull depressions. No sinus tenderness. EYES: PERRLA, EOMI x 2, No injected conjunctiva, no nystagmus. EARS: Hearing grossly intact. Ear canals and tympanic membranes are within normal limits. MOUTH: Oropharynx within normal limits. NECK: Supple, trachea is midline, no adenopathy, no JVD, no carotid bruit, no c- spine tenderness, neck with full ROM. CHEST: Symmetric, no tenderness at palpation LUNGS: Decreased breath sounds bilaterally, diffuse wheezing. CVS: Regular rate and rhythm, S1 and S2 present, no murmurs or gallops appreciated. ABDOMEN: Soft, non-tender. No signs of distention. No rebound no guarding, and no masses palpated. Bowel sounds are normal. EXTREMITIES: FROM in all major joints, no edema, no cyanosis or clubbing. NEURO: Alert and oriented x 3. No acute neurological deficits. Speech is normal and follows commands. SKIN: Dermatitis on left side of neck. Triage Information Reviewed: Yes Vital Signs On Initial Exam: Initial Vitals Temp Pulse Resp BP Pulse Ox 97.1 F 76 20 158/97 92 03/11/19 16:22 03/11/19 16:22 03/11/19 16:22 03/11/19 16:22 03/11/19 16:22 Vital Signs Reviewed: Yes Diagnostics - Vital Signs Vital Signs Temp Pulse Resp BP Pulse Ox 03/11/19 16:22 97.1 F 76 20 158/97 92 - Laboratory Result Diagrams: 03/11/19 16:45 05/04/19 16:45 Lab Statement: Any lab studies that have been ordered have been reviewed, and results considered in the medical decision making process. - Radiology CXR Radiology Interpretation Completed By: Radiologist Summary of Radiographic Findings: FINDINGS CONSISTENT WITH COPD, NO EVIDENCE FOR ACUTE DISEASE. Dr. Ruiz has reviewed this radiology report. - EKG 1638 Cardiac Rate: NL - 71 EKG Rhythm: Sinus Rhythm ST Segment: Normal EKG Comparison: No Significant Change - Similar to EKG taken 02/19/2019 Summary of EKG Findings: NSR at 71BPM without ST elevations, similar to EKG taken 02/19/2019 1922 Cardiac Rate: NL - 69 BPM EKG Rhythm: Sinus Rhythm ST Segment: Normal EKG Comparison: No Significant Change - Similar to EKG taken at 1638 today. Summary of EKG Findings: NSR at 69 BPM, no ST elevations, similar to EKG taken at 1638 today. Re-Evaluation - Re-Evaluation First Eval Re-Evaluation Time: 19:49 Comment: Patient still has decreased breath sounds with slight wheezing, O2 sat 93%. Course/Dx - Course Assessment/Plan: This patient is a 64-year-old male who presents to the emergency department with a chief complaint of shortness of breath. The patient has been having these symptoms for the last 5 days. He reports productive cough without any fever. Patient has history of COPD. In the ED course the patient was given an IV access, the patient was given IV fluids, Solu -Medrol, and DuoNebs for his COPD exacerbation. Test results without any significant abnormality, troponin 0.00. Chest x-ray impression: Findings consistent with COPD. No evidence for acute disease. In reexamination the patient is having slight wheezing therefore the patient was given another DuoNeb. After these medications were given the symptoms have improved. The patient is saturating 94 and 95% on room air. Therefore the patient was discharged home with follow-up with PCP. The patient will be given a prescription for albuterol INH and prednisone. I discussed all the findings and test results with the patient. Patient was instructed to return to the emergency room immediately if any of the symptoms return or worsens . Plan of care was discussed with the patient and understands and agrees. All questions were answered at patient satisfaction. There were no further complaints or concerns. Lung exam before discharge: CTA B/L. Good air exchange. No wheezing or crackles heard. CVS: S1 and S2 present. No murmurs appreciated. Patient is alert and oriented x 3. Patient is hemodynamically stable. Patient will be discharged home with follow up loss mitigation specialist in the next 2-3 days - Diagnoses Provider Diagnoses: COPD exacerbation Discharge - Sign-Out/Discharge Documenting (check all that apply): Patient Departure - Discharge Patient Received Moderate/Deep Sedation with Procedure: No - Discharge Plan Condition: Stable Disposition: HOME Prescriptions: Albuterol HFA INHALER* [Ventolin HFA Inhaler*] 1 puff INH Q4H PRN #1 mdi PRN Reason: Shortness Of Breath predniSONE TAB* [Deltasone 20 MG TAB*] 40 mg PO DAILY #8 tab Patient Education Materials: COPD (Chronic Obstructive Pulmonary Disease) (ED) Referrals: King Rivera MD [Primary Care Provider] - 3 Days Additional Instructions: Follow-up with your primary care provider in 3 days. RETURN THE ER FOR CHANGING OR WORSENING SYMPTOMS. - Billing Disposition and Condition Condition: STABLE Disposition: Home - Attestation Statements Document Initiated by Jenaibe: Yes Documenting Scribe: Alf Garces Provider For Whom Fan is Documenting (Include Credential): King Ruiz MD Scribe Attestation: IAlf, scribed for King Ruiz MD on 03/11/19 at 2130. Scribe Documentation Reviewed: Yes Provider Attestation: The documentation as recorded by the Alf rouse accurately reflects the service I personally performed and the decisions made by me, King Ruiz MD Status of Scribe Document: Viewed
[2019-03-11 17:11] LABS: ABS Eosinophils 0.7 10^3/ul (0-0.6); ABS Lymphocytes 1.6 10^3/ul (1.0-4.8); ABS Monocytes 0.6 10^3/ul (0-0.8); Eosinophil % 11.5 %; Hematocrit 47 % (42-52); Hemoglobin 15.9 g/dL (14.0-18.0); Lymphocyte % 26.9 %; Mean Corpuscular HGB Conc 34 g/dL (31-36); Mean Corpuscular Hemoglobin 31 pg (27-31); Mean Corpuscular Volume 93 fL (80-94); Mean Platelet Volume 8.1 fL (7.4-10.4); Nucleated Red Blood Cells % 0.1; Platelet Count 169 10^3/uL (150-450); Red Blood Count 5.06 10^6 /uL (4.18-5.48); Red Cell Distribution Width 13 % (10.5-15); White Blood Count 5.9 10^3/uL (3.5-10.8)
[2019-03-11 17:22] LABS: Albumin 3.8 g/dL (3.2-5.2); Albumin/Globulin Ratio 1.3 (1-3); BUN/Creatinine Ratio 14.3 (8-20); C Reactive Protein 4.06 mg/L (<8.01); Calcium 9.2 mg/dL (8.6-10.3); EGFR African American 123.5 (>60); Globulin 2.9 g/dL (2-4); Potassium 4.2 mmol/L (3.5-5.0); Total Bilirubin 0.4 mg/dL (0.2-1.0); Total Protein 6.7 g/dL (6.4-8.9)
[2019-03-11 17:27] LABS: CKMB ng/mL 2.2 ng/mL (0.6-6.3)
[2019-03-11] MEDS: Albuterol/Ipratropium NEB.SOL* Albuterol 2.5 MG/Ipratropium 0.5 MG 3 ML INH SCH ×3 (18:10→18:33)
[2019-03-11] MEDS ORDERED: Albuterol/Ipratropium NEB.SOL* Albuterol 2.5 MG/Ipratropium 0.5 MG 3 ML INH ONE (20:02)
[2019-03-11 21:22] VITALS: BP 148/87
== END 2019-03-11 21:21 | disposition home or self-care (01) ==
LOC: ED 16:16
DX: J44.1 Chronic obstructive pulmonary disease with (acute) exacerbation (principal); K21.9 Gastro-esophageal reflux disease without esophagitis; F17.210 Nicotine dependence, cigarettes, uncomplicated
CPT/HCPCS: 36415; 71046; 80053; 82550; 82553; 83605; 83880; 84484; 85025; 86140; 87040; 93005; 96361; 96374; 99283; A9270-GY; J2930

== ENCOUNTER 2019-04-08 00:47 | Inpatient (IN) | payer SELFPAY ==
[2019-04-08] MEDS ORDERED: methylPREDNISolone 125 MG* 2 ML VIAL IV ONE (01:12)
[2019-04-08] MEDS ORDERED: Albuterol/Ipratropium NEB.SOL* Albuterol 2.5 MG/Ipratropium 0.5 MG 3 ML INH ONE ×4 (01:12→08:45)
--- NOTE | 2019-04-08 01:19 | ED ---
Shortness of Breath - HPI Summary HPI Summary: The patient is a 64 y/o M presenting to [facility] with a chief complaint of sudden onset SOB tonight. He reports that he was working near mold, pollen, and pesticides today, and he also notes that he smoked a few cigarettes. He additionally c/o productive cough and mid-sternal chest tightness. The pain is currently rated 8/10 in severity. Hx of GERD, COPD. No hx of [place]. Doesn't use O2 at home, but O2 in the ED alleviates the hypoxia. - History of Current Complaint Chief Complaint: EDShortnessOfBreath Time Seen by Provider: 04/08/19 01:07 Hx Obtained From: Patient Onset/Duration: Sudden Onset, Lasting Hours, Still Present Timing: Constant Current Severity: Severe Dyspnea At: Rest Aggrevating Factors: Other - was near pollen, mold, and pesticides today Alleviating Factors: Nothing Associated Signs & Symptoms: Cough (Productive), Chest Pain Unrelated to Cough - mid-sternal tightness - Allergy/Home Medications Allergies/Adverse Reactions: Allergies Allergy/AdvReac Type Severity Reaction Status Date / Time No Known Allergies Allergy Verified 04/08/19 00:50 PMH/Surg Hx/FS Hx/Imm Hx Endocrine/Hematology History: Denies: Hx Diabetes Cardiovascular History: Denies: Hx Hypertension, Other Cardiovascular Problems/Disorders Respiratory History: Reports: Hx Chronic Obstructive Pulmonary Disease (COPD) GI History: Reports: Hx Gastroesophageal Reflux Disease - [facility] Musculoskeletal History: Reports: Other Musculoskeletal History - BILATERAL HANDS R/T BROKEN BONES YEARS AGO Sensory History: Reports: Hx Cataracts - [place], Hx Contacts or Glasses - readers Denies: Hx Hearing Aid Opthamlomology History: Reports: Hx Cataracts - [place], Hx Contacts or Glasses - readers Neurological History: Denies: Other Neuro Impairments/Disorders Psychiatric History: Reports: Hx Anxiety - Surgical History Surgery Procedure, Year, and Place: left cataract, 2013 Hx Anesthesia Reactions: No Infectious Disease History: No Infectious Disease History: Reports: Hx Hepatitis - hep c Denies: Traveled Outside the [place] in Last 30 Days - Family History Known Family History: Positive: Blood Disorder, Other - Negative [place] Negative: Cardiac Disease - Social History Alcohol Use: Daily Alcohol Amount: 2-3beers/day Hx Substance Use: Yes Substance Use Type: Reports: Marijuana Substance Use Comment - Amount & Last Used: not now Hx Tobacco Use: Yes Smoking Status (MU): Light Every Day Tobacco Smoker Amount Used/How Often: 5-6 cigs per day Review of Systems Positive: Chest Pain - mid-sternal tightness Positive: Shortness Of Breath, Cough - productive, Other - wheezing All Other Systems Reviewed And Are Negative: Yes Physical Exam - Summary Physical Exam Summary: Appearance: Well appearing, no pain distress Skin: warm, dry, reflects adequate perfusion Head/face: normal Eyes: EOMI, MICKEY ENT: normal Neck: supple, non-tender Respiratory: bilateral wheeze, breath sounds present Cardiovascular: RRR, pulses symmetrical Abdomen: non-tender, soft Musculoskeletal: normal, strength/ROM intact Neuro: normal, sensory motor intact, A&Ox3 Triage Information Reviewed: Yes Vital Signs On Initial Exam: Initial Vitals Temp Pulse Resp BP Pulse Ox 96.7 F 92 20 162/107 91 04/08/19 00:48 04/08/19 00:48 04/08/19 00:48 04/08/19 00:48 04/08/19 00:48 Vital Signs Reviewed: Yes Diagnostics - Vital Signs Vital Signs Temp Pulse Resp BP Pulse Ox 04/08/19 00:48 96.7 F 92 20 162/107 91 - Laboratory Result Diagrams: 04/08/19 01:20 04/08/19 01:20 Lab Statement: Any lab studies that have been ordered have been reviewed, and results considered in the medical decision making process. - EKG 0131 Cardiac Rate: NL - 64 BPM EKG Rhythm: Sinus Rhythm Summary of EKG Findings: No ST elevations Re-Evaluation - Re-Evaluation First Eval Re-Evaluation Time: 03:30 Comment: The patient is feeling better at this time. Course/Dx - Course Assessment/Plan: The patient is a 64 y/o M presenting to [facility] with a chief complaint of sudden onset SOB tonight after working near mold, pollen, and pesticides during the day. He also smoked a few cigarettes and now has productive cough and mid-sternal chest tightness. Upon physical exam, the patient exhibits bilateral wheeze. In the ED course, the patient was administered Solu-Medrol, Zithromax, and Duoneb. Blood work obtained. EKG reveals NSR at 64 BPM. CXR reveals no acute infiltrate. At 0600, Dr. Rangel, hospitalist, spoke with the patient in the ED. At 0615, the patient does not want to be admitted because of costs. He wants to wait until 0800 to see if he is feeling better. He is diagnosed with COPD exacerbation, hypoxia, and respiratory failure. The patient is a sign-out to Dr. King Ruiz MD, from Dr. Alexis Garcia MD at change of shift at 0700 pending possible admission. - Diagnoses Differential Diagnosis/HQI/PQRI: Positive: Bronchitis, COPD Exacerbation, Pneumonia Provider Diagnoses: COPD exacerbation, Hypoxia, Respiratory failure - Physician Notifications Discussed Care of Patient With: Jaclyn Rangel - hospitalist Time Discussed With Above Provider: 06:00 Instructed by Provider To: Other - I spoke with Dr. Rangel concerning the patient's case. She agrees to see the patient in the ED. At 0615, the patient doesn't want to be admitted, and he wants to wait until 0800 to decide. - Critical Care Time Critical Care Time: 30-74 min Discharge - Sign-Out/Discharge Documenting (check all that apply): Sign-Out Patient Signing out patient TO: King Ruiz - Patient is a sign-out to Dr. Ruiz at shift change pending possible admisison. Patient Received Moderate/Deep Sedation with Procedure: No - Discharge Plan Condition: Stable Prescriptions: Albuterol HFA INHALER* [Ventolin HFA Inhaler*] 2 puff INH Q6H PRN #1 mdi MDD 4 PRN Reason: Sob/Wheezing Azithromycin TAB* [Zithromax TAB (Z-TIRSO) 250 mg #6 tabs] 250 mg PO DAILY #4 tab methylPREDNISolone [Medrol] 4 mg PO ONCE #1 tab.ds.pk Referrals: King Rivera MD [Primary Care Provider] - - Billing Disposition and Condition Condition: STABLE - Attestation Statements Document Initiated by Scribe: Yes Documenting Scribe: Lyn George Provider For Whom Fan is Documenting (Include Credential): Dr. Alexis Garcia MD Scribe Attestation: Lyn Juan scribed for Dr. Alexis Garcia MD on 04/08/19 at 0628. Scribe Documentation Reviewed: Yes Provider Attestation: The documentation as recorded by the Lyn rouse accurately reflects the service I personally performed and the decisions made by me, Dr. Alexis Garcia MD Status of Scribe Document: Viewed
[2019-04-08 01:35] LABS: ABS Eosinophils 0.7 10^3/ul (0-0.6); ABS Lymphocytes 1.7 10^3/ul (1.0-4.8); ABS Monocytes 0.6 10^3/ul (0-0.8); ABS Neutrophils 2.7 10^3/ul (1.5-7.7); Eosinophil % 12.6 %; Hematocrit 47 % (42-52); Hemoglobin 15.7 g/dL (14.0-18.0); Lymphocyte % 28.6 %; Mean Corpuscular HGB Conc 33 g/dL (31-36); Mean Corpuscular Hemoglobin 31 pg (27-31); Mean Corpuscular Volume 94 fL (80-94); Mean Platelet Volume 8.5 fL (7.4-10.4); Nucleated Red Blood Cells % 0.1; Platelet Count 163 10^3/uL (150-450); Red Blood Count 4.99 10^6 /uL (4.18-5.48); Red Cell Distribution Width 14 % (10.5-15); White Blood Count 5.8 10^3/uL (3.5-10.8)
[2019-04-08 01:40] LABS: Activated Partial Thrombo Time 34.2 seconds (26.0-38.0); INR 0.97 (0.82-1.09)
[2019-04-08 01:48] LABS: Albumin/Globulin Ratio 1.5 (1-3); BUN/Creatinine Ratio 12.4 (8-20); Calcium 9.1 mg/dL (8.6-10.3); EGFR African American 104.5 (>60); EGFR Non-African American 86.3 (>60); Globulin 2.7 g/dL (2-4); Potassium 3.9 mmol/L (3.5-5.0); Total Bilirubin 0.5 mg/dL (0.2-1.0); Total Protein 6.7 g/dL (6.4-8.9)
[2019-04-08] MEDS ORDERED: Azithromycin TAB* 250 MG PO ONE (02:36)
--- NOTE | 2019-04-08 07:59 | ED ---
Progress - Progress Note Progress Note: This pt was signed out by Dr. Garcia at shift change, pending disposition, awaiting re-evaluation. Pt is a 64 y/o male [facility] [place]/o cough, SOB, and chest tightness. Pt states he does not have insurance. He notes he can't afford to be admitted to the hospital because his hospital bill would be too expensive. Physical Exam: VITAL SIGNS: Reviewed. GENERAL: Patient is a well-developed and nourished male. Patient is not in any acute respiratory distress. HEAD AND FACE: No signs of trauma. No ecchymosis, hematomas or skull depressions. No sinus tenderness. EYES: PERRLA, EOMI x 2, No injected conjunctiva, no nystagmus. EARS: Hearing grossly intact. Ear canals and tympanic membranes are within normal limits. MOUTH: Oropharynx within normal limits. NECK: Supple, trachea is midline, no adenopathy, no JVD, no carotid bruit, no c- spine tenderness, neck with full ROM. CHEST: Symmetric, no tenderness at palpation LUNGS: Decreased breath sounds. Diffuse wheezing. CVS: Regular rate and rhythm, S1 and S2 present, no murmurs or gallops appreciated. ABDOMEN: Soft, non-tender. No signs of distention. No rebound no guarding, and no masses palpated. Bowel sounds are normal. EXTREMITIES: FROM in all major joints, no edema, no cyanosis or clubbing. NEURO: Alert and oriented x 3. No acute neurological deficits. Speech is normal and follows commands. SKIN: Dry and warm Re-Evaluation - Re-Evaluation First Eval Re-Evaluation Time: 08:37 Change: Unchanged Comment: The patient is still coughing and SOB. He reports he does not have insurance and it would be too expensive to be admitted. Pt does not have oxygen at home but he does have a nebulizer at home. He notes it wouold be too difficult to wear oxygen and work at the same time. Pt states he is still a smoker although he has tried to quit, and had a couple of cigarettes yesterday. Pt was also working near mold and pollen yesterday. He reports his symptoms began at midnight with cough, SOB, scratchy throat. Additionally notes he had chest tightness. Pt has never seen a maintenance groundskeeper in the past. Second Eval Re-Evaluation Time: 11:00 Comment: Pt still reports he is unwilling to stay due to hospital costs. Third Eval Re-Evaluation Time: 11:45 Comment: Hospitalist PATIENT SAFETY COORDINATOR, Beatriz Sheldon, evaluated the pt. PATIENT SAFETY COORDINATOR reports the pt will be admitted to the hospitalist and pt agrees. Course/Dx - Course Course Of Treatment: This patient was signed out by Dr. Garcia for reassessment of his COPD exacerbation. The patient was given 2 additional DuoNebs and the symptoms did not significantly improved. Therefore, I discussed my physical exam and findings with Dr. Duran from the hospitalist services and accepted the patient for admission. The patient also agreed for the admission. - Diagnoses Provider Diagnoses: COPD exacerbation, Hypoxia, Respiratory failure - Provider Notifications Discussed Care Of Patient With: Mariposa Duran - hospitalist Time Discussed With Above Provider: 11:05 Instructed by Provider To: Other - Discussed with Dr. Duran, hospitalist, who reports she will consult on the pt. Discharge - Sign-Out/Discharge Documenting (check all that apply): Patient Departure - Admit to [facility], Receiving Sign-Out Receiving patient FROM: Alexis Garcia All imaging exams completed and their final reports reviewed: Yes Patient Received Moderate/Deep Sedation with Procedure: No - Discharge Plan Condition: Stable Disposition: ADMITTED TO [facility] - Billing Disposition and Condition Condition: STABLE Disposition: Admitted to [facility] - Attestation Statements Document Initiated by Fan: Yes Documenting Scribe: Lina Mccain Provider For Whom Fan is Documenting (Include Credential): King Ruiz MD Scribe Attestation: I, Lina Mccain, scribed for King Ruiz MD on 04/09/19 at 1823. Scribe Documentation Reviewed: Yes Provider Attestation: The documentation as recorded by the Lina rouse accurately reflects the service I personally performed and the decisions made by me, King Ruiz MD Status of Scribe Document: Viewed
--- NOTE | 2019-04-08 08:53 | HP ---
CONSULT CHANGED TO ADMISSION HISTORY AND PHYSICAL PER REQUEST OF PA PROVIDER CONSULTATION REPORT / ADMISSION HISTORY AND PHYSICAL DATE OF CONSULT: 04/08/19 - EMERGENCY DEPT DATE OF ADMISSION: 04/09/19 PRIMARY CARE PROVIDER: The patient has been utilizing the [facility]. CHIEF COMPLAINT: Shortness of breath. HISTORY OF PRESENT ILLNESS: Mr. Denise is a 64-year-old male with a history of COPD, ongoing tobacco abuse, GERD, anxiety, treated hepatitis C, who states over the last 2 to 3 days, he has had progressive shortness of breath. The patient states that at baseline, he does have shortness of breath. However, at least over the last 2 to 3 days, if not over the last one week, he has become more short of breath. He states that he has been using his Ventolin inhaler frequently, but became concerned that he was needing to use it every 2 hours. He believes that his breathing worsened after cleaning up mold and paint cans where he may have inhaled some fumes. He also states, however, he has been smoking a few cigarettes per day and thinks that is likely contributing as well. He states that he is trying to quit smoking. When he presented to the emergency room, he had significant wheezing and felt tight in the chest. He also notes that he had copious clear sputum production. He states that when he does not smoke, he does not have sputum production. Patient also states that he could not sleep due to the fact that he would wake up feeling so short of breath and need to use his inhaler and the cycle would just repeat. He denies any fevers or chills. He denies any sick contacts. PAST MEDICAL HISTORY: 1. COPD. 2. GERD. 3. Anxiety. 4. Treated hepatitis C. PAST SURGICAL HISTORY: Bilateral cataract extraction. ALLERGIES: No known drug allergies. MEDICATIONS: 1. Ventolin 2 puffs inhaled every 4 hours as needed. 2. The patient states he also has another inhaler that he got a sample from the [facility]. FAMILY HISTORY: Mom at the age of 65 of unknown causes. Dad at the age of 65 of an [place]. SOCIAL HISTORY: The patient has smoked for the last 25 years about half a pack per day, though recently he has been trying to cut down He also drinks 1 to 2 beers per day. He works in construction. He is . He has 4 children. He indicates that his daughter, Charlene will be his healthcare proxy. REVIEW OF SYSTEMS: A complete 11-systems review of systems is obtained. Pertinent positives and negatives as per HPI. In addition, the patient does state that he has had a rash on the left side of his face and neck that has been present essentially since November 2018, though improves and worsens intermittently. He does describe this also as being itchy. PHYSICAL EXAMINATION: Vital Signs: Blood pressure 165/99, pulse 89, respirations 15, temp 96.7, O2 sat 97% on 4 L. General: Patient is a well-developed, middle-aged male lying in a stretcher in no acute distress. HEENT: Pupils are equal and round. There is evidence of prior cataract extraction. Extraocular muscles are intact. Oropharynx is clear. Oral mucosa is moist. The patient has poor dentition. There is no submandibular, cervical, or supraclavicular adenopathy. Thyroid is not enlarged. No thyroid nodules noted. Cardiac: Normal S1, S2. Heart rate is tachycardic, but regular. There is no lower extremity edema. Pulmonary: Lungs are clear to auscultation, though breath sounds are diminished throughout. Abdomen: Bowel sounds present. Abdomen is soft, nontender, nondistended. Musculoskeletal: There is no cyanosis or clubbing of the digits. There is full active range of motion of all 4 extremities. Skin is warm and dry. There is an almost plaque-like erythematous lesion overlying the left alevism and lateral zygomatic arch. This travels down into his phelps and more superior into his hairline. Patient states there is also rash on his posterior neck, though this is not as obvious. Neuro: Cranial nerves II through XII are grossly intact. Sensation is intact to light touch throughout. Strength is 5/5 and symmetric to both upper and lower extremities bilaterally. Psych: Patient is alert. He is oriented x3. Affect is appropriate. DIAGNOSTIC STUDIES/LAB DATA: WBC 5.8, hemoglobin 15.7, hematocrit 47, platelets 163, INR 0.97. Sodium 137, potassium 3.9, chloride 106, CO2 of 24, BUN 11, creatinine 0.89, glucose 101, lactic acid 0.6, calcium 9.1. Bilirubin 0.5, AST 24, ALT 20, alk phos 42. Troponin 0. BNP 12. Albumin 4. Chest x-ray to my interpretation reveals hyperinflation without any focal infiltrates. EKG shows normal sinus rhythm without any acute ST-T wave abnormalities. ASSESSMENT AND PLAN: Mr. Denise is a 64-year-old male with a history of chronic obstructive pulmonary disease exacerbation and ongoing tobacco abuse presents to the emergency room with complaints of progressive shortness of breath over the last several days. 1. Chronic obstructive pulmonary disease exacerbation. At this point, it is my recommendation that the patient be admitted at least under observation status to receive [id number] nebulizer treatments, IV Solu-Medrol and antibiotics for presumed chronic obstructive pulmonary disease exacerbation. At this point, the patient is hesitant to do so as he states he does not have insurance and he does not have the money to pay for hospital bill. The patient would like to continue to rest in the emergency room until around 8 o'clock a.m. when he can then try to make a decision on what he wants to do. If the patient is admitted, the plan would be for standing albuterol nebs, IV Solu- Medrol and antibiotics along with supplemental oxygen. The O2 can be weaned as the patient is able. If the patient is discharged, the same treatment essentially should be undertaken including the round- the-clock nebulizer treatment, which the patient can do at home as he already has albuterol for nebulizer machine, prednisone and antibiotic. Patient understands that he is tachycardic with minimal movement and that he is requiring oxygen at this time. He has a capacity to make the decision to leave against medical advice if he chooses to do so. 2. Gastroesophageal reflux disease. Continue p.r.n. Tums. 3. Anxiety. The patient will continue to manage this conservatively. 4. The hospitalist service will be available to admit the patient if he chooses to be admitted or if he chooses for discharge, my recommendation to the ER provider is that the patient will be discharged against medical advice. [id number]/[facility] #: [id number] NIC
[2019-04-08] MEDS ORDERED: Albuterol HFA INHALER* 8 gm MDI INH PRN (12:01)
--- NOTE | 2019-04-08 12:58 | HP ---
HISTORY AND PHYSICAL: DATE OF ADMISSION: 04/09/19 ATTENDING PROVIDER: Mariposa Arroyo MD * (DICTATED BY CHANG TESFAYE NP) ADDENDUM: The patient initially was resistant to being admitted to the hospital. The patient continued to have shortness of breath in the emergency room. Due to his continued shortness of breath, the patient is now agreeable to being admitted to the hospital. He will be admitted under observation for: 1. Chronic obstructive pulmonary disease exacerbation: I will place him on Solu- Medrol IV 40 mg q.12 hours. He will be placed on azithromycin and ceftriaxone for antibiotics. We will continue nebulizers around the clock and oxygen via nasal cannula as needed to maintain O2 saturations greater than 92%. We will continue the rest of his plan of care as per the previous dictation by Dr. Jaclyn Rangel. 2. Code status: The patient is a full code. 3. DVT prophylaxis: I will place him on Lovenox subcu. 4. FEN: He can have a regular diet. TIME SPENT: Time spent on this admission was approximately 30 minutes; greater than half that time was spent at the bedside reviewing the events leading thus far to his hospitalization, performing physical exam, and reviewing my plan of care. I have discussed this with my attending, Dr. Mariposa Arroyo; she is in agreement with my plan. CHANG TESFAYE NP [id number]/[facility] #: [id number] MTDD
[2019-04-08] MEDS ORDERED: Albuterol/Ipratropium NEB.SOL* Albuterol 2.5 MG/Ipratropium 0.5 MG 3 ML INH SCH (13:00)
[2019-04-08] MEDS: Enoxaparin(*) 40 MG/0.4 ML SYR SUBCUT SCH (14:26)
[2019-04-08] MEDS: Albuterol/Ipratropium NEB.SOL* Albuterol 2.5 MG/Ipratropium 0.5 MG 3 ML INH SCH ×3 (14:44→22:33)
[2019-04-08] MEDS: cefTRIAXone(*) 1 GM in NS 0.9% 50 ML* 50 ML IVPB SCH (14:54)
[2019-04-08] MEDS: methylPREDNISolone SOD 40 MG* 1 ML VIAL IV SCH (14:54)
[2019-04-08] MEDS: Umeclidin/Vilant 62.5 MDI 62.5/25 mcg 14 INH ELLIPTA DEVICE INH SCH (19:22)
[2019-04-08] MEDS: CMCS:Ketoconazole 2 % CREAM (NF) 30 GM TUBE TOPICAL SCH (23:53)
[2019-04-09] MEDS: methylPREDNISolone SOD 40 MG* 1 ML VIAL IV SCH ×2 (01:37→13:47)
[2019-04-09] MEDS: Azithromycin 500 mg/250 ml NS 500 MG/250 ML BAG IVPB SCH (01:39)
[2019-04-09] MEDS: Albuterol/Ipratropium NEB.SOL* Albuterol 2.5 MG/Ipratropium 0.5 MG 3 ML INH SCH ×6 (02:39→22:42)
[2019-04-09] MEDS: Calcium Carbonate CHEW TAB* 500 MG (TUMS) PO PRN ×2 (03:10→22:56)
[2019-04-09] MEDS: CMCS:Ketoconazole 2 % CREAM (NF) 30 GM TUBE TOPICAL SCH ×2 (10:14→20:42)
[2019-04-09] MEDS: cefTRIAXone(*) 1 GM in NS 0.9% 50 ML* 50 ML IVPB SCH (13:47)
[2019-04-09] MEDS: Enoxaparin(*) 40 MG/0.4 ML SYR SUBCUT SCH (13:47)
--- NOTE | 2019-04-09 16:13 | PN ---
Subjective Date of Service: 04/09/19 Interval History: Patient seen and examined. States he still feels SOB but better than at admission. States he has unproductive cough. Feels he had some indiscretion after last admission in regards to smoking and not wearing a respirator at work and exposing himself to mold and construction dust and has felt dyspneic since. Denies chest pain. No fevers or chills, does fell tired and has not slept much the last three nights. States he is very worried about lack of insurance. Objective Active Medications: Acetaminophen (Tylenol Tab*) 650 mg PO Q4H PRN PRN Reason: FEVER/PAIN Albuterol (Ventolin Hfa Inhaler*) 1 puff INH Q4H PRN PRN Reason: SHORTNESS OF BREATH Last Admin: 04/09/19 01:47 Dose: 1 puff Albuterol/Ipratropium (Duoneb (Albuterol 2.5 Mg/Ipratropium 0.5 Mg)) 1 neb INH Q4H [facility] Last Admin: 04/09/19 14:57 Dose: 1 neb Calcium Carbonate (Tums*) 1,000 mg PO Q4H PRN PRN Reason: INDIGESTION Last Admin: 04/09/19 03:10 Dose: 1,000 mg Enoxaparin Sodium (Lovenox(*)) 40 mg SUBCUT Q24H [facility] Last Admin: 04/09/19 13:47 Dose: 40 mg Azithromycin (Zithromax 500 Mg/250 Ml) 500 mg in 250 mls @ 250 mls/hr IVPB Q24H [facility] Last Admin: 04/09/19 01:39 Dose: 250 mls/hr Ceftriaxone Sodium 1 gm/ (Sodium Chloride) 50 mls @ 200 mls/hr IVPB Q24H [facility] Last Admin: 04/09/19 13:47 Dose: 200 mls/hr Ketoconazole (Nizoral 2% Cream (Nf)) 1 applic TOPICAL BID [facility]; Protocol Last Admin: 04/09/19 10:14 Dose: 1 applic Methylprednisolone Sodium Succinate (Solu-Medrol 40 Mg) 40 mg IV Q12H [facility] Last Admin: 04/09/19 13:47 Dose: 40 mg Umeclidinium/Vilanterol (Anoro 62.5/25 Ellipta Device (Nf)) 1 inh INH QPM [facility] Last Admin: 04/08/19 19:22 Dose: Not Given Vital Signs - 8 hr 04/09/19 04/09/19 04/09/19 08:09 11:08 11:36 Temperature 98.3 F Pulse Rate 63 66 94 Respiratory 16 22 16 Rate Blood Pressure 135/74 (mmHg) O2 Sat by Pulse 95 98 93 Oximetry 04/09/19 04/09/19 15:00 15:02 Temperature Pulse Rate 97 97 Respiratory 16 97 Rate Blood Pressure (mmHg) O2 Sat by Pulse 97 16 Oximetry Oxygen Devices in Use Now: Nasal Cannula Appearance: alert, anxious Eyes: No Scleral Icterus, PERRLA Ears/Nose/Mouth/Throat: Clear Oropharnyx, Mucous Membranes Moist, - - poor dentition Neck: NL Appearance and Movements; NL JVP, Trachea Midline Respiratory: Symmetrical Chest Expansion and Respiratory Effort, - - poor air entry, bilateral expiratory wheeze, diminished bases Cardiovascular: NL Sounds; No Murmurs; No JVD, RRR, No Edema Abdominal: NL Sounds; No Tenderness; No Distention Extremities: No Edema, No Clubbing, Cyanosis Skin: No Rash or Ulcers Neurological: Alert and Oriented x 3 Nutrition: Taking PO's Result Diagrams: 04/08/19 01:20 04/08/19 01:20 Diagnostic Imaging: Patient Name: ABIEL CADE Medical Record#: [id number] Ordering Physician: Alexis Garcia MD Acct.#: [id number] : 1955 Age: 64 Sex: M Location: EMERGENCY DEPARTMENT Exam Date: 04/08/19 011 ADM Status: REG ER Order Information: CHEST AP OR PORT Accession Number: [id number] CPT: 32324 INDICATION: Shortness of breath in a cigarette smoker that reports "scraping some mold off the stairs " and being "around a lot of pollens/sheikh today". The patient " also poured out some pesticides" COMPARISON: Chest x-ray March 11, 2019 TECHNIQUE: Single AP portable view of the chest was obtained. FINDINGS: Image quality is compromised due to the relative inferiority of a portable chest x-ray. The heart and mediastinum exhibit normal size and contour. Relative to the previous chest x-ray, there are mildly increased interstitial lung markings. There is no focal nodule or consolidation. Visualized bones are normal for the patient's age. IMPRESSION: Mildly increased interstitial lung markings relative to the prior chest x-ray could simply be due to differences in image acquisition technique, mild vascular congestion or pneumonitis based on the history provided on the requisition. R1F Assess/Plan/Problems-Billing Assessment: This is a 64 year old male with history of COPD and tobacco use that prsented to the ED with complaints of dyspnea. - Patient Problems (1) COPD with exacerbation Code(s): J44.1 - CHRONIC OBSTRUCTIVE PULMONARY DISEASE W (ACUTE) EXACERBATION SNOMED Code(s): 524244024 Comment: - 2nd exacerbation in 5 weeks - Continue azithromycin, nebs, inhalers, mucinex, added flutter valve today; needs aggressive pulmonary toilet - IV solumedrol BID with prednisone taper at discharge - Wean O2 as tolerated, maintain sats >92% - Will DC ceftriaxone, no consolidation on CXR, no fever and no white count (2) Tobacco abuse counseling Code(s): Z71.6 - TOBACCO ABUSE COUNSELING SNOMED Code(s): 391872389 Comment: - Offered nicotine replacement, declined, states he has not smoked in 3 days and does not plan on smoking again - Also discussed respiratory protection while at work (3) DVT prophylaxis Code(s): Z29.9 - ENCOUNTER FOR PROPHYLACTIC MEASURES, UNSPECIFIED SNOMED Code( s): 373143582 Comment: - lovenox SQ (4) Full code status Code(s): Z78.9 - OTHER SPECIFIED HEALTH STATUS SNOMED Code(s): 399230940 Status and Disposition: Inpatient for IV steroids and oxygen
[2019-04-09] MEDS: Umeclidin/Vilant 62.5 MDI 62.5/25 mcg 14 INH ELLIPTA DEVICE INH SCH (18:33)
[2019-04-10] MEDS: methylPREDNISolone SOD 40 MG* 1 ML VIAL IV SCH ×2 (00:51→13:44)
[2019-04-10] MEDS: Azithromycin 500 mg/250 ml NS 500 MG/250 ML BAG IVPB SCH (00:51)
[2019-04-10] MEDS: Albuterol/Ipratropium NEB.SOL* Albuterol 2.5 MG/Ipratropium 0.5 MG 3 ML INH SCH ×5 (02:55→19:26)
[2019-04-10] MEDS: CMCS:Ketoconazole 2 % CREAM (NF) 30 GM TUBE TOPICAL SCH ×2 (09:48→19:38)
[2019-04-10] MEDS: Acetaminophen TAB* 325 MG PO PRN ×2 (09:54→19:37)
[2019-04-10] MEDS: Enoxaparin(*) 40 MG/0.4 ML SYR SUBCUT SCH (13:43)
[2019-04-10] MEDS: Cetirizine* 10 MG TAB PO SCH (15:15)
[2019-04-10] MEDS: guaiFENesin ER TAB 600 MG PO SCH ×2 (15:15→19:38)
[2019-04-10] MEDS: Umeclidin/Vilant 62.5 MDI 62.5/25 mcg 14 INH ELLIPTA DEVICE INH SCH (19:27)
--- NOTE | 2019-04-10 19:33 | PN ---
Subjective Date of Service: 04/10/19 Interval History: Patient seen and examined. No acute overnight events. Patient was able to be off O2 for shower without issue today. Does feels winded now, but no acute SOB, denies chest pain, no fevers or chills. Feels he is able to expectorate more with flutter valve now. No further complaints. States he feels his breathing is improving slowly. Objective Active Medications: Acetaminophen (Tylenol Tab*) 650 mg PO Q4H PRN PRN Reason: FEVER/PAIN Last Admin: 04/10/19 09:54 Dose: 650 mg Albuterol (Ventolin Hfa Inhaler*) 1 puff INH Q4H PRN PRN Reason: SHORTNESS OF BREATH Last Admin: 04/09/19 01:47 Dose: 1 puff Albuterol/Ipratropium (Duoneb (Albuterol 2.5 Mg/Ipratropium 0.5 Mg)) 1 neb INH Q4H [facility] Last Admin: 04/10/19 19:26 Dose: 1 neb Calcium Carbonate (Tums*) 1,000 mg PO Q4H PRN PRN Reason: INDIGESTION Last Admin: 04/09/19 22:56 Dose: 1,000 mg Cetirizine HCl (Zyrtec*) 5 mg PO DAILY [facility] Last Admin: 04/10/19 15:15 Dose: 5 mg Enoxaparin Sodium (Lovenox(*)) 40 mg SUBCUT Q24H [facility] Last Admin: 04/10/19 13:43 Dose: 40 mg Guaifenesin (Mucinex*) 600 mg PO BID [facility] Last Admin: 04/10/19 15:15 Dose: 600 mg Azithromycin (Zithromax 500 Mg/250 Ml) 500 mg in 250 mls @ 250 mls/hr IVPB Q24H [facility] Last Admin: 04/10/19 00:51 Dose: 250 mls/hr Ketoconazole (Nizoral 2% Cream (Nf)) 1 applic TOPICAL BID [facility]; Protocol Last Admin: 04/10/19 09:48 Dose: 1 applic Methylprednisolone Sodium Succinate (Solu-Medrol 40 Mg) 40 mg IV Q12H [facility] Last Admin: 04/10/19 13:44 Dose: 40 mg Umeclidinium/Vilanterol (Anoro 62.5/25 Ellipta Device (Nf)) 1 inh INH QPM [facility] Last Admin: 04/10/19 19:27 Dose: Not Given Vital Signs - 8 hr 04/10/19 04/10/19 04/10/19 11:30 12:06 15:45 Temperature 98.2 F 97.8 F Pulse Rate 89 76 88 Respiratory 18 14 20 Rate Blood Pressure 139/69 137/87 (mmHg) O2 Sat by Pulse 95 98 93 Oximetry Oxygen Devices in Use Now: Nasal Cannula Appearance: alert, NAD Eyes: No Scleral Icterus, PERRLA Ears/Nose/Mouth/Throat: NL Teeth, Lips, Gums, Mucous Membranes Moist Neck: NL Appearance and Movements; NL JVP, Trachea Midline Respiratory: Symmetrical Chest Expansion and Respiratory Effort, - - diminished throughout lung piper, wheeze improved, no rales or rhonchi Cardiovascular: NL Sounds; No Murmurs; No JVD, RRR, No Edema Abdominal: NL Sounds; No Tenderness; No Distention Extremities: No Edema, No Clubbing, Cyanosis Skin: No Rash or Ulcers Neurological: Alert and Oriented x 3, NL Muscle Strength and Tone Nutrition: Taking PO's Result Diagrams: 04/08/19 01:20 04/08/19 01:20 Diagnostic Imaging: Patient Name: ABIEL CADE Medical Record#: [id number] Ordering Physician: Alexis Garcia MD Acct.#: [id number] : 1955 Age: 64 Sex: M Location: EMERGENCY DEPARTMENT Exam Date: 04/08/19 011 ADM Status: REG ER Order Information: CHEST AP OR PORT Accession Number: [id number] CPT: 39930 INDICATION: Shortness of breath in a cigarette smoker that reports "scraping some mold off the stairs " and being "around a lot of pollens/sheikh today". The patient " also poured out some pesticides" COMPARISON: Chest x-ray March 11, 2019 TECHNIQUE: Single AP portable view of the chest was obtained. FINDINGS: Image quality is compromised due to the relative inferiority of a portable chest x-ray. The heart and mediastinum exhibit normal size and contour. Relative to the previous chest x-ray, there are mildly increased interstitial lung markings. There is no focal nodule or consolidation. Visualized bones are normal for the patient's age. IMPRESSION: Mildly increased interstitial lung markings relative to the prior chest x-ray could simply be due to differences in image acquisition technique, mild vascular congestion or pneumonitis based on the history provided on the requisition. R1F Assess/Plan/Problems-Billing Assessment: This is a 64 year old male with history of COPD and tobacco use that prsented to the ED with complaints of dyspnea. - Patient Problems (1) COPD with exacerbation Code(s): J44.1 - CHRONIC OBSTRUCTIVE PULMONARY DISEASE W (ACUTE) EXACERBATION SNOMED Code(s): 126538820 Comment: - 2nd exacerbation in 5 weeks - Continue azithromycin, nebs, inhalers, mucinex, added flutter valve which is helping; needs aggressive pulmonary toilet - IV solumedrol BID with prednisone taper at discharge - Wean O2 as tolerated, maintain sats >92% - Will DC ceftriaxone, no consolidation on CXR, no fever and no white count (2) Tobacco abuse counseling Code(s): Z71.6 - TOBACCO ABUSE COUNSELING SNOMED Code(s): 003835455 Comment: - Offered nicotine replacement, declined, states he has not smoked in 3 days and does not plan on smoking again - Also discussed respiratory protection while at work (3) DVT prophylaxis Code(s): Z29.9 - ENCOUNTER FOR PROPHYLACTIC MEASURES, UNSPECIFIED SNOMED Code( s): 503709068 Comment: - lovenox SQ (4) Full code status Code(s): Z78.9 - OTHER SPECIFIED HEALTH STATUS SNOMED Code(s): 385816669 Status and Disposition: Inpatient for IV steroids and oxygen. DC in AM if off O2
[2019-04-10] MEDS: Calcium Carbonate CHEW TAB* 500 MG (TUMS) PO PRN (19:38)
[2019-04-11] MEDS: Calcium Carbonate CHEW TAB* 500 MG (TUMS) PO PRN ×3 (01:30→18:12)
[2019-04-11] MEDS: methylPREDNISolone SOD 40 MG* 1 ML VIAL IV SCH ×2 (01:30→13:40)
[2019-04-11] MEDS: Albuterol/Ipratropium NEB.SOL* Albuterol 2.5 MG/Ipratropium 0.5 MG 3 ML INH SCH ×4 (01:40→20:12)
[2019-04-11] MEDS: Azithromycin 500 mg/250 ml NS 500 MG/250 ML BAG IVPB SCH (02:15)
[2019-04-11] MEDS: guaiFENesin ER TAB 600 MG PO SCH ×2 (08:21→20:48)
[2019-04-11] MEDS: Cetirizine* 10 MG TAB PO SCH (08:21)
[2019-04-11] MEDS: Acetaminophen TAB* 325 MG PO PRN (08:23)
[2019-04-11] MEDS: CMCS:Ketoconazole 2 % CREAM (NF) 30 GM TUBE TOPICAL SCH ×2 (08:33→20:52)
[2019-04-11] MEDS: Enoxaparin(*) 40 MG/0.4 ML SYR SUBCUT SCH (13:40)
--- NOTE | 2019-04-11 17:09 | PN ---
Subjective Date of Service: 04/11/19 Interval History: Patient seen and examined. Required O2 overnight and this AM again. Patient states his breathing felt better yesterday and then was struggling again today. Cough increased but remains non-productive. No fever or chills. No chest pain. Objective Active Medications: Acetaminophen (Tylenol Tab*) 650 mg PO Q4H PRN PRN Reason: FEVER/PAIN Last Admin: 04/11/19 08:23 Dose: 650 mg Albuterol (Ventolin Hfa Inhaler*) 1 puff INH Q4H PRN PRN Reason: SHORTNESS OF BREATH Last Admin: 04/09/19 01:47 Dose: 1 puff Albuterol/Ipratropium (Duoneb (Albuterol 2.5 Mg/Ipratropium 0.5 Mg)) 1 neb INH RT.[id number] AWAKE [facility] Last Admin: 04/11/19 13:16 Dose: 1 neb Calcium Carbonate (Tums*) 1,000 mg PO Q4H PRN PRN Reason: INDIGESTION Last Admin: 04/11/19 08:23 Dose: 1,000 mg Cetirizine HCl (Zyrtec*) 5 mg PO DAILY [facility] Last Admin: 04/11/19 08:21 Dose: 5 mg Enoxaparin Sodium (Lovenox(*)) 40 mg SUBCUT Q24H [facility] Last Admin: 04/11/19 13:40 Dose: 40 mg Guaifenesin (Mucinex*) 600 mg PO BID [facility] Last Admin: 04/11/19 08:21 Dose: 600 mg Ketoconazole (Nizoral 2% Cream (Nf)) 1 applic TOPICAL BID [facility]; Protocol Last Admin: 04/11/19 08:33 Dose: 1 applic Methylprednisolone Sodium Succinate (Solu-Medrol 40 Mg) 40 mg IV Q12H [facility] Last Admin: 04/11/19 13:40 Dose: 40 mg Umeclidinium/Vilanterol (Anoro 62.5/25 Ellipta Device (Nf)) 1 inh INH QPM [facility] Last Admin: 04/10/19 19:27 Dose: Not Given Vital Signs - 8 hr 04/11/19 04/11/19 04/11/19 11:15 13:38 15:15 Temperature 98.0 F 97.4 F Pulse Rate 66 82 62 Respiratory 16 18 20 Rate Blood Pressure 119/64 129/71 (mmHg) O2 Sat by Pulse 96 94 98 Oximetry Oxygen Devices in Use Now: Nasal Cannula Appearance: alert, NAD Eyes: No Scleral Icterus, PERRLA Ears/Nose/Mouth/Throat: NL Teeth, Lips, Gums, Mucous Membranes Moist Neck: NL Appearance and Movements; NL JVP, Trachea Midline Respiratory: - - course wheeze bilaterally, diminished throughout Cardiovascular: NL Sounds; No Murmurs; No JVD, RRR, No Edema Abdominal: NL Sounds; No Tenderness; No Distention Extremities: No Edema, No Clubbing, Cyanosis Skin: - - pink rash left cheek, improved Neurological: Alert and Oriented x 3, NL Sensation, NL Gait Nutrition: Taking PO's Result Diagrams: 04/08/19 01:20 04/08/19 01:20 Diagnostic Imaging: Patient Name: ABIEL CADE Medical Record#: [id number] Ordering Physician: Alexis Garcia MD Acct.#: [id number] : 1955 Age: 64 Sex: M Location: EMERGENCY DEPARTMENT Exam Date: 04/08/19111 ADM Status: REG ER Order Information: CHEST AP OR PORT Accession Number: [id number] CPT: 12170 INDICATION: Shortness of breath in a cigarette smoker that reports "scraping some mold off the stairs " and being "around a lot of pollens/sheikh today". The patient " also poured out some pesticides" COMPARISON: Chest x-ray March 11, 2019 TECHNIQUE: Single AP portable view of the chest was obtained. FINDINGS: Image quality is compromised due to the relative inferiority of a portable chest x-ray. The heart and mediastinum exhibit normal size and contour. Relative to the previous chest x-ray, there are mildly increased interstitial lung markings. There is no focal nodule or consolidation. Visualized bones are normal for the patient's age. IMPRESSION: Mildly increased interstitial lung markings relative to the prior chest x-ray could simply be due to differences in image acquisition technique, mild vascular congestion or pneumonitis based on the history provided on the requisition. R1F Assess/Plan/Problems-Billing Assessment: This is a 64 year old male with history of COPD and tobacco use that presented to the ED with complaints of dyspnea. - Patient Problems (1) COPD with exacerbation Code(s): J44.1 - CHRONIC OBSTRUCTIVE PULMONARY DISEASE W (ACUTE) EXACERBATION SNOMED Code(s): 066639990 Comment: - 2nd exacerbation in 5 weeks - Change to PO awithromycin in AM - Continue mucinex and claritin - Continue aggressive pulmonary toilet with flutter valve nebs, inhalers - IV solumedrol BID with prednisone taper at discharge - Will DC ceftriaxone, no consolidation on CXR, no fever and no white count - Walking sat 90% on room air today with noted tachypnea and increased WOB - Consider consultation with pulmonology in AM if patient is not feeling better (2) Tobacco abuse counseling Code(s): Z71.6 - TOBACCO ABUSE COUNSELING SNOMED Code(s): 314712403 Comment: - Offered nicotine replacement, declined, states he has not smoked for 3 days before admission and does not plan on smoking again - Also discussed respiratory protection while at work (N95) (3) DVT prophylaxis Code(s): Z29.9 - ENCOUNTER FOR PROPHYLACTIC MEASURES, UNSPECIFIED SNOMED Code( s): 133871993 Comment: - lovenox SQ (4) Rash Code(s): R21 - RASH AND OTHER NONSPECIFIC SKIN ERUPTION SNOMED Code(s): 594694535 Comment: - Erythema/pruritis left cheek - Continue topical ketoconizole, improving (5) Full code status Code(s): Z78.9 - OTHER SPECIFIED HEALTH STATUS SNOMED Code(s): 665138346 Status and Disposition: Inpatient , very slow improvement. May need pulmonology consultation if patient still requiring O2 in AM. Would otherwise plan to DC on oral prednisone taper and azithromycin and inhalers.
[2019-04-11] MEDS: Umeclidin/Vilant 62.5 MDI 62.5/25 mcg 14 INH ELLIPTA DEVICE INH SCH (20:13)
[2019-04-12] MEDS: methylPREDNISolone SOD 40 MG* 1 ML VIAL IV SCH ×2 (01:10→13:53)
[2019-04-12] MEDS: Calcium Carbonate CHEW TAB* 500 MG (TUMS) PO PRN (01:14)
[2019-04-12] MEDS: Albuterol/Ipratropium NEB.SOL* Albuterol 2.5 MG/Ipratropium 0.5 MG 3 ML INH SCH ×3 (02:28→13:11)
[2019-04-12 08:05] VITALS: BP 149/93
[2019-04-12] MEDS: Cetirizine* 10 MG TAB PO SCH (08:16)
[2019-04-12] MEDS: guaiFENesin ER TAB 600 MG PO SCH (08:16)
[2019-04-12] MEDS: CMCS:Ketoconazole 2 % CREAM (NF) 30 GM TUBE TOPICAL SCH (08:17)
[2019-04-12] MEDS ORDERED: Azithromycin TAB* 250 MG PO SCH (09:00)
[2019-04-12] MEDS: Enoxaparin(*) 40 MG/0.4 ML SYR SUBCUT SCH (14:07)
--- NOTE | 2019-04-12 17:04 | DS ---
CC: Dr. King Rivera * DISCHARGE SUMMARY: DATE OF ADMISSION: 04/09/19 DATE OF DISCHARGE: 04/12/19 PRIMARY CARE PROVIDER: Dr. King Rivera. ATTENDING PHYSICIAN: Dr. Mariposa Faustin * dictated by CONI Juarez) . PRIMARY DIAGNOSES: 1. Chronic obstructive pulmonary disease exacerbation. 2. Tobacco abuse. SECONDARY DIAGNOSES: 1. Chronic obstructive pulmonary disease. 2. Gastroesophageal reflux disease. 3. Anxiety. 4. Hepatitis C - treated. STUDIES WHILE IN THE HOSPITAL: Chest x-ray 04/08/19, impression: Mildly increased interstitial lung markings relative to the prior chest x-ray, could simply be due to differences in imaging acquisition technique, mild vascular congestion or pneumonitis based on history provided on the requisition. ECG 04/08/19: Normal sinus rhythm. No ST changes. DISCHARGE MEDICATIONS: Home medications: 1. Albuterol 0.5% concentrated nebulizer solution 120 mL neb solution q.6 hours p.r.n. 2. Albuterol HFA inhaler 2 puffs inhalation q.4 hours p.r.n. shortness of breath. 3. Calcium carbonate 500 mg p.o. daily p.r.n. indigestion. 4. Anoro Ellipta 62.5/25 one inhalation q.p.m. New home medication: Prednisone taper 40 mg x3 days, 30 mg x3 days, 20 mg x3 days, 10 mg x3 days, 5 mg x3 days, then discontinue. HISTORY OF PRESENT ILLNESS/HOSPITAL COURSE: Mr. Whiting is a 64-year-old male with a past medical history of COPD and tobacco abuse who presented to the ER with shortness of breath x2 to 3 days. He admits to baseline shortness of breath but states that it has been getting worse and has required increased use of Ventolin and home inhaler. He notes that he had previously been cleaning up mold and paint cans and has also continued smoking. He thinks that this may have exacerbated. In the ER, he was found to have significant wheezing with copious clear sputum production. He was admitted for treatment of COPD. He was started on IV Solu- Medrol. He was also given a 5-day course of azithromycin for antiinflammatory properties. He began on oxygen and was slowly weaned off. He was given around the clock nebulizer treatments as well as his home medications. He was given 1 round of ceftriaxone, but this was discontinued as there was no evidence of consolidation on chest x-ray. The patient was offered nicotine replacement, but has refused. He has been approximately 7 days smoke free at discharge and feels confident that he will not need medications to continue abstaining from tobacco. At the time of discharge, the patient denies chest pain. He continues to have mild shortness of breath, although he has not required oxygen since yesterday. He also does not require ambulatory oxygen. He denies fever, sputum production, abdominal pain, nausea, vomiting, diarrhea, constipation or pain in the extremities. He does admit to an occasional wheeze, but states that this has decreased significantly. Mr. Whiting is stable for discharge. PHYSICAL EXAMINATION: Vital Signs: Temperature 97.5 oral, heart rate 96, respiratory rate 14, oxygen saturation 94% on room air, blood pressure 149/93. General: Mr. Whiting is a well-developed, well-nourished, 64-year-old white male who is sitting up in bed. He is overweight. He appears to be in no acute distress. There is no work of breathing. HEENT: PERRL. EOMI. Nonicteric sclerae. Hearing is intact. Oral mucous membranes are moist. There are no lesions. The pharynx is clear. Cardiovascular: Regular rate and rhythm. S1 and S2 present without murmurs, rubs or gallops. There is no JVD. Respiratory : Symmetrical chest expansion without use of accessory muscles. Good air exchange. There are no rhonchi or rubs. There is mild wheezing at the left upper and right lower lung piper. Abdomen: Bowel sounds noted in all quadrants. The abdomen is soft. There is no tenderness to palpation. Extremities: Skin is warm and smooth bilaterally without clubbing or cyanosis. There is no edema. Radial and pedal pulses palpable. Neuro: The patient is awake. He is alert and oriented. He is able to move all of his extremities. DISCHARGE PLAN: Mr. Whiting will be discharged to home. CONDITION: Fair. ACTIVITY: As tolerated. DIET: Heart healthy. MEDICATIONS: Prednisone taper as described above. EDUCATION: Follow up with primary care provider in 4 to 7 days. Return to the ER or nearest hospital if he experiences any worsening of symptoms, shortness of breath, chest discomfort, high fevers, chills, night sweats, lightheadedness , dizziness, loss of consciousness, or any other worrisome signs or symptoms. This is a summarized report of a complex medical history and hospital stay. For further details, please see the entire medical record. TIME SPENT: Approximately 35 minutes was spent on this discharge, greater than half that time was spent [id number] with the patient discussing discharge plans and instructions. CONI JUAREZ [id number]/CPS #: [id number]
== END 2019-04-12 15:00 | disposition home or self-care (01) | DRG 190 ==
LOC: ED 00:47 → MED 11:59 → OBSVTOIN 04-09 13:56 → MED 04-11
PROVIDERS: ADMIT Internal Medicine; ATTEND Internal Medicine
DX: J44.1 Chronic obstructive pulmonary disease with (acute) exacerbation (principal); J96.91 Respiratory failure, unspecified with hypoxia; K21.9 Gastro-esophageal reflux disease without esophagitis; F17.210 Nicotine dependence, cigarettes, uncomplicated; R21 Rash and other nonspecific skin eruption; F41.9 Anxiety disorder, unspecified; Z86.19 Personal history of other infectious and parasitic diseases; Z79.51 Long term (current) use of inhaled steroids; Z79.899 Other long term (current) drug therapy; Z82.49 Family history of ischemic heart disease and other diseases of the circulatory system
CPT/HCPCS: 36415; 71045; 80053; 83605; 83735; 83880; 84484; 85025; 85610; 85730; 93005; 94640; 99285; 99406; A9270-GY; G0378; J0456; J0696; J1650; J2920; J2930

== ENCOUNTER 2019-05-16 16:40 | Emergency (ER) | payer SELFPAY ==
[2019-05-16] MEDS ORDERED: Albuterol/Ipratropium NEB.SOL* Albuterol 2.5 MG/Ipratropium 0.5 MG 3 ML INH ONE ×4 (19:44→23:16)
[2019-05-16] MEDS ORDERED: methylPREDNISolone 125 MG* 2 ML VIAL IV ONE (19:44)
[2019-05-16] MEDS ORDERED: Magnesium Sulfate 2 GM IV* 2 GM/50 ML BAG IVPB ONE (19:46)
--- NOTE | 2019-05-16 19:59 | ED ---
Shortness of Breath - HPI Summary HPI Summary: 64-year-old female presents with shortness of breath for the past couple days. He states he went outside and felt the shortness breath. He has history of COPD and has been wheezing coughing. No fevers. Admits to some chest tightness with cough but no chest pain. no abdominal pain. No nausea and vomiting. He states he took his albuterol treatments at home with no relief. He's not on at home oxygen. Denies any increase weight. No pain or swelling in calf muscles. - History of Current Complaint Chief Complaint: EDShortnessOfBreath Time Seen by Provider: 05/16/19 19:40 - Allergy/Home Medications Allergies/Adverse Reactions: Allergies Allergy/AdvReac Type Severity Reaction Status Date / Time No Known Allergies Allergy Verified 05/16/19 16:53 Home Medications: Home Medications Albuterol 0.5% CONC NEB.MONA* 1 mg .SEE ORDER Q6HR PRN 05/16/19 [History Confirmed 05/16/19] PMH/Surg Hx/FS Hx/Imm Hx Endocrine/Hematology History: Denies: Hx Diabetes Cardiovascular History: Denies: Hx Hypertension, Other Cardiovascular Problems/Disorders Respiratory History: Reports: Hx Chronic Obstructive Pulmonary Disease (COPD) Denies: Hx Asthma GI History: Reports: Hx Gastroesophageal Reflux Disease - HEARTBURN Musculoskeletal History: Reports: Other Musculoskeletal History - BILATERAL HANDS R/T BROKEN BONES YEARS AGO Sensory History: Reports: Hx Cataracts - [place], Hx Contacts or Glasses - readers Denies: Hx Hearing Aid Opthamlomology History: Reports: Hx Cataracts - [place], Hx Contacts or Glasses - readers Neurological History: Denies: Other Neuro Impairments/Disorders Psychiatric History: Reports: Hx Anxiety - Surgical History Surgery Procedure, Year, and Place: left cataract, 2013 Hx Anesthesia Reactions: No Infectious Disease History: No Infectious Disease History: Reports: Hx Hepatitis - hep c Denies: Traveled Outside the [place] in Last 30 Days - Family History Known Family History: Positive: Blood Disorder, Other - Negative [place] Negative: Cardiac Disease - Social History Alcohol Use: Rare Alcohol Amount: 2-3beers/day Hx Substance Use: Yes Substance Use Type: Reports: None Substance Use Comment - Amount & Last Used: not now Hx Tobacco Use: Yes Smoking Status (MU): Former Smoker Amount Used/How Often: 5-6 cigs per day Review of Systems Negative: Fever Negative: Chest Pain Positive: Shortness Of Breath, Cough Negative: Abdominal Pain All Other Systems Reviewed And Are Negative: Yes Physical Exam Triage Information Reviewed: Yes Vital Signs On Initial Exam: Initial Vitals Temp Pulse Resp BP Pulse Ox 99.3 F 114 16 148/100 93 05/16/19 16:50 05/16/19 16:50 05/16/19 16:50 05/16/19 16:50 05/16/19 16:50 Vital Signs Reviewed: Yes Appearance: Positive: Well-Appearing Skin: Positive: Warm, Dry Head/Face: Positive: Normal Head/Face Inspection Eyes: Positive: Normal, Conjunctiva Clear ENT: Positive: Pharynx normal Respiratory/Lung Sounds: Positive: Decreased Breath Sounds, Wheezes Cardiovascular: Positive: Normal, RRR Abdomen Description: Positive: Nontender, Soft Bowel Sounds: Positive: Present Musculoskeletal: Positive: Normal Neurological: Positive: Normal Psychiatric: Positive: Normal Diagnostics - Vital Signs Vital Signs Temp Pulse Resp BP Pulse Ox 05/16/19 19:37 104 171/103 94 05/16/19 19:36 104 92 05/16/19 18:37 97.8 F 98 16 151/110 89 05/16/19 16:50 99.3 F 114 16 148/100 93 - Laboratory Result Diagrams: 05/16/19 19:54 05/16/19 19:54 Lab Statement: Any lab studies that have been ordered have been reviewed, and results considered in the medical decision making process. - Radiology chest Radiology Interpretation Completed By: ED Physician Summary of Radiographic Findings: no pneumonia, copd - EKG No standard instances Cardiac Rate: Tachycardia EKG Rhythm: Sinus Tachycardia Summary of EKG Findings: sinus tachycardia Re-Evaluation - Re-Evaluation First Eval Re-Evaluation Time: 20:59 Change: Improved Comment: still some wheezing present Second Eval Change: Improved Comment: feeling better will remove oxygen to see how stats Third Eval Change: Improved Comment: discussed going home vs admission and patient feels comfortable Fourth Eval Re-Evaluation Time: 23:15 Comment: discussed urgent rx meds and plan to use combo of albuterol and ipratropium at home Course/Dx - Course Course Of Treatment: 64-year-old female presents with shortness of breath for the past couple days. He states he went outside and felt the shortness breath. He has history of COPD and has been wheezing coughing. No fevers. Admits to some chest tightness with cough but no chest pain. no abdominal pain. No nausea and vomiting. He states he took his albuterol treatments at home with no relief. He's not on at home oxygen. Denies any increase weight. No pain or swelling in calf muscles. On exam decreased breath sounds with wheezing noted. wbc normal. CRP normal. chest xray read by me as copd. EKG shows sinus tachycardia. troponin and d-dimer neg. Gave Solu-Medrol magnesium and breathing treatment and feeling better. Patient sats between 93 and 96 on room air. Does desat to about 91 when falls asleep. This is probably the patient's baseline. Discussed with patient about admission vs going home and patient feels a lot better and feels like he is back to his baseline. Discuss with patient that does not have insurance at the time so we'll give urgent rx which does not not cover for DuoNeb which patient states feels better than just albuterol at home. We'll give prescription for ipratropium. Will place on steroids and antibiotics for bronchitis flare up. Told to follow with primary. Told if develop worsening sob to return. Patient understands agrees with plan. - Diagnoses Differential Diagnosis/HQI/PQRI: Positive: Bronchitis, COPD Exacerbation, Pneumonia Provider Diagnoses: COPD with exacerbation Discharge - Sign-Out/Discharge Documenting (check all that apply): Patient Departure Patient Received Moderate/Deep Sedation with Procedure: No - Discharge Plan Condition: Good Disposition: HOME Prescriptions: Albuterol 2.5MG/3ML (0.083%)* [Ventolin 2.5 MG/3 ML NEB.MONA*] 2.5 mg INH Q4H # 30 neb.mona Azithromycin TAB* [Zithromax TAB (Z-TIRSO) 250 mg #6 tabs] 250 mg PO DAILY #4 tab Ipratropium 0.5MG/2.5ML NEB* [Atrovent 0.5 MG NEB.MONA*] 0.5 mg INH Q6H PRN #20 neb.soln PRN Reason: Sob/Wheezing predniSONE TAB* [Deltasone TAB*] 50 mg PO DAILY #4 tab Patient Education Materials: COPD (Chronic Obstructive Pulmonary Disease) (ED) Referrals: King Rivera MD [Primary Care Provider] - Additional Instructions: Use inhaler up to two puffs every 4 hours for cough and wheezing use albuterol nebulizer every 6 hours, use ipratopium every 6 hours after albuterol if having shortness of breath, for next two days want you to continuously do such Take steroid once a day for 4 more days starting tomorrow Take antibiotic once daily starting tomorrow for 4 days Take Tylenol for pain every 6 hours Follow up with primary within 5 days Return to ED if develop severe shortness of breath, worsening chest pain, or any new or worsening symptoms - Billing Disposition and Condition Condition: GOOD Disposition: Home
[2019-05-16 20:02] LABS: ABS Eosinophils 0.4 10^3/ul (0-0.6); ABS Lymphocytes 1.3 10^3/ul (1.0-4.8); ABS Monocytes 0.6 10^3/ul (0-0.8); ABS Neutrophils 5.5 10^3/ul (1.5-7.7); Eosinophil % 5.4 %; Hematocrit 45 % (42-52); Hemoglobin 15.7 g/dL (14.0-18.0); Lymphocyte % 16.2 %; Mean Corpuscular HGB Conc 35 g/dL (31-36); Mean Corpuscular Hemoglobin 32 pg (27-31); Mean Corpuscular Volume 92 fL (80-94); Mean Platelet Volume 7.8 fL (7.4-10.4); Nucleated Red Blood Cells % 0.1; Platelet Count 171 10^3/uL (150-450); Red Blood Count 4.93 10^6 /uL (4.18-5.48); Red Cell Distribution Width 14 % (10-15); White Blood Count 7.8 10^3/uL (3.5-10.8)
[2019-05-16 20:33] LABS: Albumin 4.3 g/dL (3.2-5.2); Albumin/Globulin Ratio 1.4 (1-3); BUN/Creatinine Ratio 10.4 (8-20); C Reactive Protein 2.18 mg/L (<8.01); Calcium 9.7 mg/dL (8.6-10.3); EGFR African American 95.7 (>60); EGFR Non-African American 79.1 (>60); Potassium 4.4 mmol/L (3.5-5.0); Total Bilirubin 0.5 mg/dL (0.2-1.0); Total Protein 7.3 g/dL (6.4-8.9)
[2019-05-16] MEDS ORDERED: Ibuprofen TAB* 600 MG PO ONE (20:57)
[2019-05-16] MEDS ORDERED: Azithromycin TAB* 250 MG PO ONE (22:09)
[2019-05-16 22:49] LABS: Urine Appearance Clear; Urine Bilirubin Negative (Negative); Urine Blood Negative (Negative); Urine Color Yellow; Urine Glucose Negative (Negative); Urine Ketones Trace (Negative); Urine Nitrite Negative (Negative); Urine Protein Negative (Negative); Urine Specific Gravity 1.006 (1.010-1.030); Urine Urobilinogen Negative (Negative)
[2019-05-16 23:58] VITALS: BP 125/71
== END 2019-05-16 23:55 | disposition home or self-care (01) ==
LOC: ED 16:40
DX: J44.1 Chronic obstructive pulmonary disease with (acute) exacerbation (principal); Z87.891 Personal history of nicotine dependence
CPT/HCPCS: 36415; 71046; 80053; 81003; 83605; 83735; 83880; 84484; 85025; 85379; 86140; 93005; 96365; 96375; 99285; A9270-GY; J2930; J3475

== ENCOUNTER 2019-06-02 01:43 | Emergency (ER) | payer SELFPAY ==
[2019-06-02] MEDS ORDERED: Dexamethasone IV* 4 MG/ML 5 ML VIAL (20 MG) IVPB ONE (02:32)
[2019-06-02] MEDS ORDERED: Magnesium Sulfate 2 GM IV* 2 GM/50 ML BAG IVPB ONE (02:34)
--- NOTE | 2019-06-02 02:35 | ED ---
Shortness of Breath - HPI Summary HPI Summary: This patient is a 64 year old M presenting to [facility] with a chief complaint of SOB since 1300 on 06/01/19. Pt has Hx of COPD (Dx 5-6 years ago). Pt was drilling dust from attic. Pt was not feeling well, used his nebulizer, went to sleep, woke up due to SOB. He uses Anoro once a night, and has a nebulizer and uses on as needed basis. Pt does not use CPAP or O2 at home. Pt started smoking in 30s and stopped smoking a month ago. - History of Current Complaint Chief Complaint: EDShortnessOfBreath Time Seen by Provider: 06/02/19 02:16 Hx Obtained From: Patient Onset/Duration: Sudden Onset, Still Present Timing: Constant Aggravating Factors: Other - dust Alleviating Factors: Nothing Associated Signs & Symptoms: Negative - cough and fever - Allergy/Home Medications Allergies/Adverse Reactions: Allergies Allergy/AdvReac Type Severity Reaction Status Date / Time No Known Allergies Allergy Verified 06/02/19 01:49 PMH/Surg Hx/FS Hx/Imm Hx Endocrine/Hematology History: Denies: Hx Diabetes Cardiovascular History: Denies: Hx Hypertension, Other Cardiovascular Problems/Disorders Respiratory History: Reports: Hx Chronic Obstructive Pulmonary Disease (COPD) Denies: Hx Asthma GI History: Reports: Hx Gastroesophageal Reflux Disease - HEARTBURN Musculoskeletal History: Reports: Other Musculoskeletal History - BILATERAL HANDS R/T BROKEN BONES YEARS AGO Sensory History: Reports: Hx Cataracts - [place], Hx Contacts or Glasses - readers Denies: Hx Hearing Aid Opthamlomology History: Reports: Hx Cataracts - [place], Hx Contacts or Glasses - readers Neurological History: Denies: Other Neuro Impairments/Disorders Psychiatric History: Reports: Hx Anxiety - Surgical History Surgery Procedure, Year, and Place: left cataract, 2013 Hx Anesthesia Reactions: No Infectious Disease History: No Infectious Disease History: Reports: Hx Hepatitis - hep c Denies: Traveled Outside the [place] in Last 30 Days - Family History Known Family History: Positive: Blood Disorder, Other - Negative [place] Negative: Cardiac Disease - Social History Occupation: Employed Full-time Alcohol Use: Rare Alcohol Amount: 2-3beers/day Hx Substance Use: Yes Substance Use Type: Reports: None Substance Use Comment - Amount & Last Used: not now Hx Tobacco Use: Yes Smoking Status (MU): Former Smoker Amount Used/How Often: 5-6 cigs per day Review of Systems Negative: Fever Positive: Shortness Of Breath. Negative: Cough All Other Systems Reviewed And Are Negative: Yes Physical Exam - Summary Physical Exam Summary: Constitutional: Well-developed, Well-nourished, Alert. (-) Distressed Skin: Warm, Dry HENT: Normocephalic; Atraumatic Eyes: Conjunctiva normal Neck: Musculoskeletal ROM normal neck. (-) JVD, (-) Stridor, (-) Tracheal deviation Cardio: Rhythm regular, rate normal, Heart sounds normal; Intact distal pulses; The pedal pulses are 2+ and symmetric. Radial pulses are 2+ and symmetric; Heart S1 S2, Pulmonary/Chest wall: Effort normal. (-) Respiratory distress, Diffused wheezing , (-) Rales, (-) Rhonchi, Adequate air entry throughout, diminished at bases; Abd: Soft, abdomen tenderness, (-) Distension, (-) Guarding, (-) Rebound Musculoskeletal: (-) Edema Neuro: Alert, Oriented x3 Psych: Mood and affect Normal Triage Information Reviewed: Yes Vital Signs On Initial Exam: Initial Vitals Temp Pulse Resp BP Pulse Ox 97.9 F 92 20 197/115 95 06/02/19 01:45 06/02/19 01:45 06/02/19 01:45 06/02/19 01:45 06/02/19 01:45 Vital Signs Reviewed: Yes Diagnostics - Vital Signs Vital Signs Temp Pulse Resp BP Pulse Ox 06/02/19 01:45 97.9 F 92 20 197/115 95 - Laboratory Lab Statement: Any lab studies that have been ordered have been reviewed, and results considered in the medical decision making process. - Radiology CXR Radiology Interpretation Completed By: ED Physician Summary of Radiographic Findings: CXR reveals, per ED physician. Emphysematous hyperinflation, no consolidation, no efusions. Pending official radiology report. Re-Evaluation - Re-Evaluation First Eval Re-Evaluation Time: 05:15 Change: Improved Comment: wheezing has improved but not resolve, if originally wheezing severe, no mild to moderate wheezing. Patient's O2 is concerning, 95% O2 awake, sleeping 89% O2 Second Eval Re-Evaluation Time: 06:18 Comment: Discussed results and plan of care with pt. Course/Dx - Course Course Of Treatment: This patient is a 64 year old M presenting to [facility] with a chief complaint of SOB since 1300 on 06/01/19. Pt has Hx of COPD (Dx 5-6 years ago). Pt was drilling dust from attic. Pt was not feeling well, used his nebulizer, went to sleep, woke up due to SOB. He uses anoro once a night, and has a nebulizer and uses on as needed basis. Pt does not use CPAP or O2 at home. Pt started smoking in 30s and stopped smoking a month ago. Pt will be given Albuterol, magnesium, and Dexamethason IV. No need for CXR, clear source with trigger. After re-eval, it was found that CXR may be necessary. CXR reveals, per ED physician. Emphysematous hyperinflation, no consolidation no efusions. Patient will be discharged. The patient is agreeable with this plan. - Diagnoses Provider Diagnoses: COPD exacerbation Discharge - Sign-Out/Discharge Documenting (check all that apply): Patient Departure - Discharge Patient Received Moderate/Deep Sedation with Procedure: No - Discharge Plan Referrals: King Rivera MD [Primary Care Provider] - - Attestation Statements Document Initiated by Scribe: Yes Documenting Scribe: Maddy Foster Provider For Whom Scribe is Documenting (Include Credential): Dr. Thomas Powers MD Scribe Attestation: Maddy Juan scribed for Dr. Thomas Powers MD on 06/02/19 at 0644. Status of Scribe Document: Ready
[2019-06-02] MEDS ORDERED: Albuterol/Ipratropium NEB.SOL* Albuterol 2.5 MG/Ipratropium 0.5 MG 3 ML ONE (02:56)
[2019-06-02] MEDS: Albuterol/Ipratropium NEB.SOL* Albuterol 2.5 MG/Ipratropium 0.5 MG 3 ML INH SCH ×3 (02:57→03:16)
[2019-06-02] MEDS ORDERED: Albuterol/Ipratropium NEB.SOL* Albuterol 2.5 MG/Ipratropium 0.5 MG 3 ML INH ONE (05:22)
[2019-06-02] MEDS ORDERED: Albuterol HFA INHALER* 8 gm MDI INH ONE ×2 (07:06→07:07)
[2019-06-02 07:17] VITALS: BP 125/78
== END 2019-06-02 07:15 | disposition home or self-care (01) ==
LOC: ED 01:43
DX: J44.1 Chronic obstructive pulmonary disease with (acute) exacerbation (principal); K21.9 Gastro-esophageal reflux disease without esophagitis; Z87.891 Personal history of nicotine dependence
CPT/HCPCS: 71046; 96365; 96375; 99284; A9270-GY; J1100; J3475

== ENCOUNTER 2019-06-26 19:53 | Emergency (ER) | payer SELFPAY ==
[2019-06-26] MEDS ORDERED: predniSONE TAB* 20 MG PO ONE (21:25)
--- NOTE | 2019-06-26 21:25 | ED ---
Shortness of Breath - HPI Summary HPI Summary: Pt is a 64 y/o M presenting to the ED with a chief complaint of shortness of breath initially onset on 06/23/19. He tried to treat it at home with his inhaler and nebulizer, but he could feel it worsening and wanted to come into the ED. He states he has had some secondhand smoke exposure at work, but that he has quit smoking cigarettes. He denies fevers or chills. - History of Current Complaint Chief Complaint: EDShortnessOfBreath Time Seen by Provider: 06/26/19 21:05 Hx Obtained From: Patient Onset/Duration: Gradual Onset, Lasting Days, Still Present Timing: Constant Current Severity: Moderate Dyspnea At: Rest Aggravating Factors: Nothing Alleviating Factors: Nothing Associated Signs & Symptoms: Negative - Allergy/Home Medications Allergies/Adverse Reactions: Allergies Allergy/AdvReac Type Severity Reaction Status Date / Time No Known Allergies Allergy Verified 06/26/19 21:08 PMH/Surg Hx/FS Hx/Imm Hx Previously Healthy: Yes Endocrine/Hematology History: Denies: Hx Diabetes Cardiovascular History: Denies: Hx Hypertension, Other Cardiovascular Problems/Disorders Respiratory History: Reports: Hx Chronic Obstructive Pulmonary Disease (COPD) Denies: Hx Asthma GI History: Reports: Hx Gastroesophageal Reflux Disease - HEARTBURN Musculoskeletal History: Reports: Other Musculoskeletal History - BILATERAL HANDS R/T BROKEN BONES YEARS AGO Sensory History: Reports: Hx Cataracts - [place], Hx Contacts or Glasses - readers Denies: Hx Hearing Aid Opthamlomology History: Reports: Hx Cataracts - [place], Hx Contacts or Glasses - readers Neurological History: Denies: Other Neuro Impairments/Disorders Psychiatric History: Reports: Hx Anxiety - Surgical History Surgery Procedure, Year, and Place: left cataract, 2013 Hx Anesthesia Reactions: No Infectious Disease History: No Infectious Disease History: Reports: Hx Hepatitis - hep c Denies: Traveled Outside the [place] in Last 30 Days - Family History Known Family History: Positive: Blood Disorder, Other - Negative [place] Negative: Cardiac Disease - Social History Alcohol Use: Rare Alcohol Amount: 2-3beers/day Hx Substance Use: Yes Substance Use Type: Reports: None Substance Use Comment - Amount & Last Used: not now Hx Tobacco Use: Yes Smoking Status (MU): Former Smoker Amount Used/How Often: 5-6 cigs per day Review of Systems Negative: Fever, Chills Positive: Shortness Of Breath All Other Systems Reviewed And Are Negative: Yes Physical Exam - Summary Physical Exam Summary: Constitutional: Well-developed, Well-nourished, Alert. (-) Distressed Skin: Warm, Dry HENT: Normocephalic; Atraumatic Eyes: Conjunctiva normal Neck: Musculoskeletal ROM normal neck. (-) JVD, (-) Stridor, (-) Tracheal deviation Cardio: Rhythm regular, rate normal, Heart sounds normal; Intact distal pulses; The pedal pulses are 2+ and symmetric. Radial pulses are 2+ and symmetric. Pulmonary/Chest wall: Diffusely diminished air entry throughout, wheezes diffusely, prolonged expiratory phase. Abd: Soft, (-) tenderness, (-) Distension, (-) Guarding, (-) Rebound Musculoskeletal: (-) Edema Neuro: Alert, Oriented x3 Psych: Mood and affect Normal Triage Information Reviewed: Yes Vital Signs On Initial Exam: Initial Vitals Temp Pulse Resp BP Pulse Ox 98.3 F 98 18 144/101 91 06/26/19 19:56 06/26/19 19:56 06/26/19 19:56 06/26/19 19:56 06/26/19 19:56 Vital Signs Reviewed: Yes Diagnostics - Vital Signs Vital Signs Temp Pulse Resp BP Pulse Ox 06/26/19 19:56 98.3 F 98 18 144/101 91 - Laboratory Lab Statement: Any lab studies that have been ordered have been reviewed, and results considered in the medical decision making process. - EKG 2359 Cardiac Rate: NL - 83bpm EKG Rhythm: Sinus Rhythm ST Segment: Normal Ectopy: None Summary of EKG Findings: EKG at 2359 shows NSR at 83bpm with old Q-waves in leads III and aVF. The Q waves date back to at least March of 2019. No STEMI. Course/Dx - Course Course Of Treatment: Pt is a 64 y/o M presenting to the ED with a chief complaint of shortness of breath initially onset on 06/23/19. He states he has had some secondhand smoke exposure at work, but that he has quit smoking cigarettes. He denies fevers or chills. On exam, the pt has diffusely diminished air entry throughout, wheezes diffusely, and prolonged expiratory phase. Exam is otherwise nml. EKG at 2359 shows NSR at 83bpm with old Q-waves in leads III and aVF. The Q waves date back to at least March of 2019. No STEMI. - Diagnoses Provider Diagnoses: COPD exacerbation Discharge - Sign-Out/Discharge Documenting (check all that apply): Patient Departure Patient Received Moderate/Deep Sedation with Procedure: No - Discharge Plan Condition: Improved Disposition: HOME Prescriptions: Albuterol/Ipratropium NEB.MONA* [Duoneb (Albuterol 2.5 MG/Ipratropium 0.5 MG)] 1 neb INH Q6H PRN #30 neb.mona PRN Reason: Sob/Wheezing predniSONE [Prednisone 20 MG TAB] 40 mg PO DAILY 4 Days #8 tablet Patient Education Materials: COPD (Chronic Obstructive Pulmonary Disease) (ED) Referrals: King Rivera MD [Primary Care Provider] - Additional Instructions: Follow up with your primary care provider within the next 2-3 days. Return to the emergency department with any new or worsening symptoms. - Billing Disposition and Condition Condition: IMPROVED Disposition: Home - Attestation Statements Document Initiated by Scribe: Yes Documenting Scribe: Jacy Woodson Provider For Whom Fan is Documenting (Include Credential): Thomas Powers MD. Scribe Attestation: Jacy Juan scribed for Thomas Powers MD. on 06/27/19 at 0506. Scribe Documentation Reviewed: Yes Provider Attestation: The documentation as recorded by the [email or web address] accurately reflects the service I personally performed and the decisions made by , Thomas Powers MD. Status of Scribe Document: Viewed
[2019-06-26] MEDS ORDERED: Albuterol/Ipratropium NEB.SOL* Albuterol 2.5 MG/Ipratropium 0.5 MG 3 ML ONE (21:34)
[2019-06-26] MEDS: Albuterol/Ipratropium NEB.SOL* Albuterol 2.5 MG/Ipratropium 0.5 MG 3 ML INH SCH ×3 (21:37→21:56)
[2019-06-27 00:22] VITALS: BP 140/96
== END 2019-06-27 00:21 | disposition home or self-care (01) ==
LOC: ED 19:53
DX: J44.1 Chronic obstructive pulmonary disease with (acute) exacerbation (principal); R00.0 Tachycardia, unspecified; Z87.891 Personal history of nicotine dependence
CPT/HCPCS: 93005; 99283; A9270-GY; J7512

== ENCOUNTER 2019-08-05 17:28 | Emergency (ER) | payer MEDICAID ==
[2019-08-05] MEDS ORDERED: Albuterol (2.5 MG) 0.5 % CONC 2.5 MG/0.5 ML NEB.SOLN (ICU and ED only) INH ONE (20:01)
[2019-08-05] MEDS ORDERED: Albuterol/Ipratropium NEB.SOL* Albuterol 2.5 MG/Ipratropium 0.5 MG 3 ML INH ONE ×2 (20:01→21:05)
[2019-08-05] MEDS ORDERED: methylPREDNISolone 125 MG* 2 ML VIAL IV ONE (20:02)
--- NOTE | 2019-08-05 21:11 | ED ---
Respiratory - HPI Summary HPI Summary: This patient is a 64 year old M presenting to [facility] with a chief complaint of tightness in chest/wheezing since 173008/05/19, per triage. Symptoms aggravated by smoking. Symptoms alleviated by nothing. Patient reports breathing rough for couple of days, worse today when he was outside. Pt reports productive cough of clear phlegm. Pt reports nebulizer and solution was done this morning as he does whenever he feels any tightness, breaking up the phlegm. Pt reports the last time he was in the hospital for the same symptoms was 2 months ago where he was given prednisone and a nebulizer (which seemed to work well), the last time he was admitted to the hospital for the same symptoms was 5 months ago. Has never needed BiPAP or intubation. Patient denies fever, chest pain or abdominal pain. Pt smokes 1-2 cigarettes a day. - History of Current Complaint Chief Complaint: EDUpperRespComplaint Stated Complaint: DIFFICULTY BREATHING PER PT Time Seen by Provider: 08/05/19 19:53 Hx Obtained From: Patient Onset/Duration: Lasting Hours, Still Present Timing: Constant Pain Intensity: 0 Sputum Amount: None Sputum Color: Clear Aggravating Factor(s): Nothing Alleviating Factor(s): Nothing - Allergy/Home Medications Allergies/Adverse Reactions: Allergies Allergy/AdvReac Type Severity Reaction Status Date / Time No Known Allergies Allergy Verified 08/05/19 17:32 PMH/Surg Hx/FS Hx/Imm Hx Endocrine/Hematology History: Denies: Hx Diabetes Cardiovascular History: Denies: Hx Hypertension, Other Cardiovascular Problems/Disorders Respiratory History: Reports: Hx Chronic Obstructive Pulmonary Disease (COPD) Denies: Hx Asthma GI History: Reports: Hx Gastroesophageal Reflux Disease - HEARTBURN Musculoskeletal History: Reports: Other Musculoskeletal History - BILATERAL HANDS R/T BROKEN BONES YEARS AGO Sensory History: Reports: Hx Cataracts - [place], Hx Contacts or Glasses - readers Denies: Hx Hearing Aid Opthamlomology History: Reports: Hx Cataracts - [place], Hx Contacts or Glasses - readers Neurological History: Denies: Other Neuro Impairments/Disorders Psychiatric History: Reports: Hx Anxiety - Surgical History Surgery Procedure, Year, and Place: left cataract, 2013 Hx Anesthesia Reactions: No Infectious Disease History: No Infectious Disease History: Reports: Hx Hepatitis - hep c Denies: Traveled Outside the [place] in Last 30 Days - Family History Known Family History: Positive: Blood Disorder, Other - Negative [place] Negative: Cardiac Disease - Social History Alcohol Use: Rare Alcohol Amount: 2-3beers/day Hx Substance Use: No Substance Use Type: Reports: None Substance Use Comment - Amount & Last Used: rare marijuana use Hx Tobacco Use: Yes Smoking Status (MU): Light Every Day Tobacco Smoker Amount Used/How Often: 5-6 cigs per day Review of Systems Negative: Fever Negative: Chest Pain Positive: Cough - productive, Other - trouble breathing Negative: Abdominal Pain All Other Systems Reviewed And Are Negative: Yes Physical Exam - Summary Physical Exam Summary: Constitutional: Well-developed, Well-nourished, Alert. (-) Distressed Skin: Warm, Dry HENT: Normocephalic; Atraumatic Eyes: Conjunctiva normal Neck: Musculoskeletal ROM normal neck. (-) JVD, (-) Stridor, (-) Nuchal rigidity Cardio: Rhythm regular, rate normal, Heart sounds normal; Intact distal pulses; Radial pulses are 2+ and symmetric. (-) Murmur Pulmonary/Chest wall: inc WOB, bilateral expiratory wheezing with decreased air entry bilaterally Abd: Soft, (-) tenderness, (-) Distension, (-) Guarding, (-) Rebound Musculoskeletal: (-) Edema Lymph: (-) Cervical adenopathy Neuro: Alert, Oriented x3 Psych: Mood and affect Normal Triage Information Reviewed: Yes Vital Signs On Initial Exam: Initial Vitals Temp Pulse Resp BP Pulse Ox 98.1 F 94 20 157/93 94 08/05/19 17:28 08/05/19 17:28 08/05/19 17:28 08/05/19 17:28 08/05/19 17:28 Vital Signs Reviewed: Yes Diagnostics - Vital Signs Vital Signs Temp Pulse Resp BP Pulse Ox 08/05/19 21:00 82 14 95 08/05/19 20:50 73 21 134/86 94 08/05/19 20:21 77 19 155/69 100 08/05/19 20:17 82 20 99 08/05/19 20:00 80 22 95 08/05/19 19:51 81 22 95 08/05/19 19:50 85 14 163/94 93 08/05/19 17:28 98.1 F 94 20 157/93 94 - Laboratory Lab Statement: Any lab studies that have been ordered have been reviewed, and results considered in the medical decision making process. - Radiology Chest X-Ray Radiology Interpretation Completed By: ED Physician Summary of Radiographic Findings: Per ED Physician,. hyper-inflated lungs, no infiltrate. Pending official report. Re-Evaluation - Re-Evaluation First Eval Re-Evaluation Time: 21:00 Comment: Feeling better, 1 more breathing treatment and will go home Disposition - Course Course Of Treatment: 63-year-old male with a history of COPD presents with shortness of breath and wheezing. Physical exam with increased work of breathing, diffuse wheezing with decreased air entry bilaterally. Well try solumedrol, duoneb and reassessment. Check a chest x-ray for infiltrate. - Diagnoses Provider Diagnoses: COPD (chronic obstructive pulmonary disease) Discharge ED - Sign-Out/Discharge Documenting (check all that apply): Patient Departure - discharge Patient Received Moderate/Deep Sedation with Procedure: No - Discharge Plan Condition: Stable Disposition: HOME Prescriptions: Albuterol HFA INHALER* [Ventolin HFA Inhaler*] 2 puff INH Q4H PRN 30 Days #1 mdi PRN Reason: Wheezing Albuterol/Ipratropium NEB.MONA* [Duoneb (Albuterol 2.5 MG/Ipratropium 0.5 MG)] 1 neb INH Q4H 2 Days #5 neb.soln predniSONE TAB* [Deltasone 20 MG TAB*] 40 mg PO DAILY 4 Days #8 tab Patient Education Materials: COPD (Chronic Obstructive Pulmonary Disease) (ED) Referrals: King Rivera MD [Primary Care Provider] - 3 Days Additional Instructions: You were seen in the emergency department for COPD. Please follow up with your primary care doctor in the next 2-3 days and return to the emergency department for worsening or concerning symptoms. It was a pleasure taking care of you today. - Billing Disposition and Condition Condition: STABLE Disposition: Home - Attestation Statements Document Initiated by Scribe: Yes Documenting Scribe: Belinda Timmons Provider For Whom Fan is Documenting (Include Credential): Dr. Tony De La Torre MD Scribe Attestation: Belinda Juan, scribed for Dr. Tony De La Torre MD on 08/06/19 at 0514. Scribe Documentation Reviewed: Yes Provider Attestation: The documentation as recorded by the scribe, Belinda Timmons accurately reflects the service I personally performed and the decisions made by me, Dr. Tony De La Torre MD Status of Scribheaven Document: Viewed
[2019-08-05] MEDS ORDERED: predniSONE TAB* 20 MG PO ONE (21:24)
[2019-08-05 22:07] VITALS: BP 148/89
== END 2019-08-05 22:06 | disposition home or self-care (01) ==
LOC: ED 17:28
DX: J44.9 Chronic obstructive pulmonary disease, unspecified (principal); K21.9 Gastro-esophageal reflux disease without esophagitis; F41.9 Anxiety disorder, unspecified; F17.210 Nicotine dependence, cigarettes, uncomplicated; Z79.899 Other long term (current) drug therapy
CPT/HCPCS: 71046; 96374; 99282; A9270-GY; J2930; J7512; J7611

== ENCOUNTER 2020-01-31 04:50 | Emergency (ER) | payer MEDICAID, OTHER ==
[2020-01-31] MEDS ORDERED: Albuterol/Ipratropium NEB.SOL* Albuterol 2.5 MG/Ipratropium 0.5 MG 3 ML INH ONE ×3 (05:05→07:33)
[2020-01-31] MEDS ORDERED: methylPREDNISolone 125 MG* 2 ML VIAL IV ONE (05:06)
[2020-01-31] MEDS ORDERED: Albuterol/Ipratropium NEB.SOL* Albuterol 2.5 MG/Ipratropium 0.5 MG 3 ML ONE (05:07)
--- NOTE | 2020-01-31 05:08 | ED ---
Shortness of Breath - HPI Summary HPI Summary: Patient is a 64 y/o M presenting to the ED for a chief complaint of shortness of breath that began on 01/29/20 and has worsened since initial onset. Patient is unable to walk due to the shortness of breath and needed to be taken out of his car to be seen at [facility]. Typically, patient has shortness of breath, but states this current episode is worse from baseline. He also reports a cough with clear phlegm that is unchanged from baseline. Patient denies fever or chest pain. No alleviating factors are reported. He has used an inhaler for the shortness of breath which improved his symptoms on 01/29/20, but provided no relief on 01/30/20. He believes he is having a COPD exacerbation. He uses a nebulizer at home, but denies using oxygen. PMHx is significant for COPD. He states he has not smoked tobacco in the last 2 weeks. Allergies denied. - History of Current Complaint Chief Complaint: EDShortnessOfBreath Time Seen by Provider: 01/31/20 04:58 Hx Obtained From: Patient Onset/Duration: Sudden Onset, Lasting Days, Still Present Timing: Constant Current Severity: Moderate Dyspnea At: Rest Aggravating Factors: Other - Exertion Alleviating Factors: Nothing Associated Signs & Symptoms: Cough (Productive) - With clear phlegm Related History: Similar Episode - Allergy/Home Medications Allergies/Adverse Reactions: Allergies Allergy/AdvReac Type Severity Reaction Status Date / Time No Known Allergies Allergy Verified 01/31/20 05:28 Home Medications: Home Medications Umeclidin/Vilant 62.5 MDI(NF) [ANORO 62.5/25 Ellipta DEVICE (NF)] 1 aer IN QPM 06/10/18 [History Confirmed 01/31/20] Albuterol HFA INHALER* [Ventolin HFA Inhaler*] 2 puff INH Q6H PRN #1 mdi MDD 4 04/08/19 [Rx Confirmed 01/31/20] Albuterol HFA INHALER* [Ventolin HFA Inhaler*] 2 puff INH Q4H PRN 30 Days #1 mdi 08/05/19 [Rx Confirmed 01/31/20] Albuterol/Ipratropium NEB.MONA* [Duoneb (Albuterol 2.5 MG/Ipratropium 0.5 MG)] 1 neb INH Q4H 2 Days #5 neb.soln 08/05/19 [Rx Confirmed 01/31/20] Albuterol HFA INHALER* [Ventolin HFA Inhaler*] 1 - 2 puff INH Q6H PRN #1 mdi [Rx] Albuterol/Ipratropium NEB.MONA* [Duoneb (Albuterol 2.5 MG/Ipratropium 0.5 MG)] 1 neb INH Q4H #30 neb.soln 01/31/20 [Rx] predniSONE 20 mg TAB [Deltasone 20 MG TAB*] 40 mg PO DAILY #10 tab 01/31/20 [Rx] PMH/Surg Hx/FS Hx/Imm Hx Previously Healthy: Yes Endocrine/Hematology History: Denies: Hx Diabetes Cardiovascular History: Denies: Hx Hypertension, Other Cardiovascular Problems/Disorders Respiratory History: Reports: Hx Chronic Obstructive Pulmonary Disease (COPD) Denies: Hx Asthma GI History: Reports: Hx Gastroesophageal Reflux Disease - HEARTBURN Musculoskeletal History: Reports: Other Musculoskeletal History - BILATERAL HANDS R/T BROKEN BONES YEARS AGO Sensory History: Reports: Hx Cataracts - [place], Hx Contacts or Glasses - readers Denies: Hx Hearing Aid Opthamlomology History: Reports: Hx Cataracts - [place], Hx Contacts or Glasses - readers Neurological History: Denies: Other Neuro Impairments/Disorders Psychiatric History: Reports: Hx Anxiety - Surgical History Surgical History: Yes Surgery Procedure, Year, and Place: left cataract, 2013 Hx Anesthesia Reactions: No Infectious Disease History: Yes Infectious Disease History: Reports: Hx Hepatitis - hep c Denies: Traveled Outside the [place] in Last 30 Days - Family History Known Family History: Positive: Blood Disorder, Other - Negative [place] Negative: Cardiac Disease - Social History Occupation: Employed Full-time Alcohol Use: Rare Alcohol Amount: 2-3beers/day Hx Substance Use: No Substance Use Type: Reports: None Substance Use Comment - Amount & Last Used: rare marijuana use Hx Tobacco Use: Yes Smoking Status (MU): Light Every Day Tobacco Smoker Amount Used/How Often: 5-6 cigs per day Review of Systems - ROS Summary Review of Systems Summary: Calcium Carbonate CHEW TAB* [Tums*] 500 mg PO DAILY PRN 06/10/18 [History Confirmed 06/26/19] Umeclidin/Vilant 62.5 MDI(NF) [ANORO 62.5/25 Ellipta DEVICE (NF)] 1 aer IN QPM 06/10/18 [History Confirmed 06/26/19] Albuterol HFA INHALER* [Ventolin HFA Inhaler*] 2 puff INH Q6H PRN #1 mdi MDD 4 04/08/19 [Rx Confirmed 06/26/19] Ipratropium 0.5MG/2.5ML NEB* [Atrovent 0.5 MG NEB.MONA*] 0.5 mg INH Q4H PRN #30 meb.soln 06/02/19 [Rx Confirmed 06/26/19] Albuterol/Ipratropium NEB.MONA* [Duoneb (Albuterol 2.5 MG/Ipratropium 0.5 MG)] 1 neb INH Q6H PRN #30 neb.mona 06/27/19 [Rx] predniSONE [Prednisone 20 MG TAB] 40 mg PO DAILY 4 Days #8 tablet 06/27/19 [Rx] Albuterol HFA INHALER* [Ventolin HFA Inhaler*] 2 puff INH Q4H PRN 30 Days #1 mdi 08/05/19 [Rx] Albuterol/Ipratropium NEB.MONA* [Duoneb (Albuterol 2.5 MG/Ipratropium 0.5 MG)] 1 neb INH Q4H 2 Days #5 neb.soln 08/05/19 [Rx] predniSONE 20 mg TAB [Deltasone 20 MG TAB*] 40 mg PO DAILY 4 Days #8 tab [Rx] Negative: Fever Negative: Chest Pain Positive: Shortness Of Breath, Cough - With clear phlegm All Other Systems Reviewed And Are Negative: Yes Physical Exam - Summary Physical Exam Summary: General: Well-developed, Well-nourished Male in moderate distress. HEENT: Normocephalic, Atraumatic. Eyes: Conjuctiva normal, PERRL. Oropharynx: Clear, mucous membranes moist, (-) exudates. Neck: Soft, FROM, (-) lymphadenopathy, (-) thyromegaly, (-) JVD. Cardiovascular: Normal sinus rhythm, (-) murmur. Lungs: (-) rales, (-) rhonchi. Bilateral wheezing throughout, decreased air exchange, tripod breathing. Abdomen: Soft, non-tender, non-distended, (-) organomegaly, normal bowel sounds. Back: (-) CVA tenderness Extremities: No edema. Skin: Warm, dry, (-) rash. Neuro: Alert and oriented x3, moves all extremities equally. No ataxia. No gait disturbance. No sensory deficit. Normal strength, normal sensation. Psychiatric: Mood normal, affect normal. Triage Information Reviewed: Yes Vital Signs On Initial Exam: Initial Vitals Temp Pulse Resp BP Pulse Ox 95.6 F 98 18 195/103 92 01/31/20 04:51 01/31/20 04:51 01/31/20 04:51 01/31/20 04:51 01/31/20 04:51 Vital Signs Reviewed: Yes Procedures - Sedation Patient Received Moderate/Deep Sedation with Procedure: No Diagnostics - Vital Signs Vital Signs Temp Pulse Resp BP Pulse Ox 01/31/20 04:51 95.6 F 98 18 195/103 92 - Laboratory Result Diagrams: 01/31/20 05:16 01/31/20 05:16 Lab Statement: Any lab studies that have been ordered have been reviewed, and results considered in the medical decision making process. - Radiology Chest X-ray Radiology Interpretation Completed By: Radiologist Summary of Radiographic Findings: Chest X-ray IMPRESSION: No infiltrate. No pleural effusion. Reviewed and interpreted by Dr. Gutierrez, pending official radiology report. - EKG 05:28 Cardiac Rate: NL - 85 BPM EKG Rhythm: Sinus Rhythm ST Segment: Normal Ectopy: None Summary of EKG Findings: EKG at 05:28 reveals normal sinus rhythm with rate of 85 BPM, no acute changes, no ischemic changes. This EKG was reviewed and interpreted by Dr. Gutierrez. Re-Evaluation - Re-Evaluation First Eval Re-Evaluation Time: 05:58 Change: Unchanged Comment: At 05:58, I will order an additional duo-nebulizer treatment. Second Eval Re-Evaluation Time: 06:48 Change: Unchanged Comment: At 06:48, patient was taken off oxygen. I will assess oxygen saturation on room air and order antibiotics. Course/Dx - Course Course Of Treatment: 64-year-old male presents from home by ambulance for shortness of breath. He has known COPD. He states he has been getting worse over the last 3-4 days. Has a productive cough of clear sputum. No known fevers. Difficulty breathing. Upon arrival he is tripoding. Pursed lips. Speaking in 2-3 word sentences. Hypoxic initially. Very diminished lung sounds bilaterally. Given 2 DuoNebs and Solu-Medrol. Dose of Zosyn. Sensory within normal limits. Oxygen is removed for titration. Patient signed out at change of shift awaiting reevaluation and disposition on room air. - Diagnoses Provider Diagnoses: COPD exacerbation Discharge ED - Sign-Out/Discharge Documenting (check all that apply): Sign-Out Patient Signing out patient TO: Dion Melendrez - Patient is a sign-out at 07:00 on 01/31/[address] Lorena Gutierrez to Dr. Myles Melendrez at shift change, pending further workup and disposition. - Discharge Plan Condition: Stable Disposition: HOME Prescriptions: Albuterol HFA INHALER* [Ventolin HFA Inhaler*] 1 - 2 puff INH Q6H PRN #1 mdi PRN Reason: Wheezing Albuterol/Ipratropium NEB.MONA* [Duoneb (Albuterol 2.5 MG/Ipratropium 0.5 MG)] 1 neb INH Q4H #30 neb.soln predniSONE 20 mg TAB [Deltasone 20 MG TAB*] 40 mg PO DAILY #10 tab Patient Education Materials: COPD (Chronic Obstructive Pulmonary Disease) (ED) Referrals: King Rivera MD [Primary Care Provider] - As Soon As Possible Additional Instructions: Return to ED with new or worsening symptoms. - Billing Disposition and Condition Condition: STABLE Disposition: Home - Attestation Statements Document Initiated by Jenaibheaven: Yes Documenting Scribe: Roxana Hernandez Provider For Whom Fan is Documenting (Include Credential): Lorena Gutierrez MD Scribe Attestation: Roxana Jaun, jenaibed for Lorena Gutierrez MD on 01/31/20 at 1914. Scribe Documentation Reviewed: Yes Provider Attestation: The documentation as recorded by the Roxana rouse accurately reflects the service I personally performed and the decisions made by me, Lorena Gutierrez MD Status of Scribe Document: Viewed
[2020-01-31 05:29] LABS: ABS Eosinophils 0.7 10^3/ul (0-0.6); ABS Lymphocytes 2.2 10^3/ul (1.0-4.8); ABS Monocytes 0.7 10^3/ul (0-0.8); ABS Neutrophils 3.3 10^3/ul (1.5-7.7); Eosinophil % 9.6 %; Hematocrit 50 % (42-52); Hemoglobin 17.2 g/dL (14.0-18.0); Lymphocyte % 31.9 %; Mean Corpuscular HGB Conc 34 g/dL (31-36); Mean Corpuscular Hemoglobin 32 pg (27-31); Mean Corpuscular Volume 92 fL (80-94); Mean Platelet Volume 8.7 fL (7.4-10.4); Platelet Count 157 10^3/uL (150-450); Red Blood Count 5.42 10^6 /uL (4.18-5.48); Red Cell Distribution Width 13 % (10-15); White Blood Count 6.9 10^3/uL (3.5-10.8)
[2020-01-31 05:36] LABS: INR 0.99 (0.82-1.09)
[2020-01-31 05:47] LABS: Albumin 4.1 g/dL (3.2-5.2); Albumin/Globulin Ratio 1.4 (1-3); BUN/Creatinine Ratio 11.3 (8-20); Calcium 9.6 mg/dL (8.6-10.3); EGFR African American 65.7 (>60); EGFR Non-African American 54.3 (>60); Globulin 2.9 g/dL (2-4); Potassium 4.1 mmol/L (3.5-5.0); Total Bilirubin 0.3 mg/dL (0.2-1.0)
[2020-01-31] MEDS ORDERED: Piperacillin/Tazobac ADVAN(*) 3.375 GM in NS 0.9% 100 ML* 100 ML IVPB ONE (06:49)
--- NOTE | 2020-01-31 08:29 | ED ---
Progress - Progress Note Progress Note: Receiving sign-out from Dr. Melendrez pending completion of respiratory treatment for COPD exacerbation and disposition at shift change 0700. Patient was administered prednisone. Patient will receive a prescription for Prednisone and Albuterol. Plan for discharge was discussed with the patient and he understands and agrees with this plan. Re-Evaluation - Re-Evaluation First Eval Re-Evaluation Time: 05:58 Change: Unchanged Comment: At 05:58, I will order an additional duo-nebulizer treatment. Second Eval Re-Evaluation Time: 06:48 Change: Unchanged Comment: At 06:48, patient was taken off oxygen. I will assess oxygen saturation on room air and order antibiotics. Course/Dx - Course Course Of Treatment: Receiving sign-out from Dr. Melendrez pending completion of respiratory treatment for COPD exacerbation and disposition at shift change 0700. Patient was administered prednisone. Patient will receive a prescription for Prednisone and albuterol. Plan for discharge was discussed with the patient and he understands and agrees with this plan. - Diagnoses Provider Diagnoses: COPD exacerbation Discharge ED - Sign-Out/Discharge Documenting (check all that apply): Patient Departure - Discharge - Discharge Plan Condition: Stable Disposition: HOME Prescriptions: Albuterol HFA INHALER* [Ventolin HFA Inhaler*] 1 - 2 puff INH Q6H PRN #1 mdi PRN Reason: Wheezing Albuterol/Ipratropium NEB.MONA* [Duoneb (Albuterol 2.5 MG/Ipratropium 0.5 MG)] 1 neb INH Q4H #30 neb.soln predniSONE 20 mg TAB [Deltasone 20 MG TAB*] 40 mg PO DAILY #10 tab Patient Education Materials: COPD (Chronic Obstructive Pulmonary Disease) (ED) Referrals: King Rivera MD [Primary Care Provider] - As Soon As Possible Additional Instructions: Return to ED with new or worsening symptoms. - Billing Disposition and Condition Condition: STABLE Disposition: Home - Attestation Statements Document Initiated by Scribe: Yes Documenting Scribe: Kin Rubin Provider For Whom Scribe is Documenting (Include Credential): Myles Melendrez DO Scribe Attestation: Kin Juan, scribed for Myles Melendrez DO on 01/31/20 at 1021. Scribe Documentation Reviewed: Yes Provider Attestation: The documentation as recorded by the scribe, Kin Rubin accurately reflects the service I personally performed and the decisions made by me, Myles Melendrez, Status of Scribe Document: Viewed
[2020-01-31 08:45] VITALS: BP 145/85
== END 2020-01-31 08:50 | disposition home or self-care (01) ==
LOC: ED 04:50
DX: J44.1 Chronic obstructive pulmonary disease with (acute) exacerbation (principal); R05 Cough; R06.02 Shortness of breath; K21.9 Gastro-esophageal reflux disease without esophagitis; F41.9 Anxiety disorder, unspecified; F17.210 Nicotine dependence, cigarettes, uncomplicated; Z79.899 Other long term (current) drug therapy; Z79.52 Long term (current) use of systemic steroids
CPT/HCPCS: 36415; 71046; 80053; 83605; 83880; 84484; 85025; 85610; 87040; 93005; 96374; 99284; A9270-GY; J2543; J2930

== ENCOUNTER 2024-09-06 02:32 | Observation (INO) ==
[2024-09-06] MEDS ORDERED: Albuterol/Ipratropium NEB.SOL (2.5/0.5 MG) 3 ML NEB.SOLN INH PRN ×2 (03:06→05:46)
[2024-09-06] MEDS: Albuterol/Ipratropium NEB.SOL (2.5/0.5 MG) 3 ML NEB.SOLN INH PRN (03:22)
[2024-09-06] MEDS ORDERED: methylPREDNISolone SOD SUCC 125 mg 2 ML VIAL IV ONE (04:37)
[2024-09-06] MEDS: methylPREDNISolone SOD SUCC 125 mg 2 ML VIAL IV ONE (05:26)
[2024-09-06] MEDS ORDERED: Enoxaparin 40 MG/0.4 ML SYR SUBCUT SCH (06:00)
[2024-09-06] MEDS ORDERED: Azithromycin 500 mg/250 ml NS 500 MG/250 ML BAG IVPB ONE (06:26)
[2024-09-06] MEDS: Enoxaparin 40 MG/0.4 ML SYR SUBCUT SCH (06:28)
[2024-09-06] MEDS: Azithromycin 500 mg/250 ml NS 500 MG/250 ML BAG IVPB ONE (06:40)
[2024-09-06] MEDS ORDERED: Albuterol/Ipratropium NEB.SOL (2.5/0.5 MG) 3 ML NEB.SOLN INH SCH (07:00)
[2024-09-06] MEDS ORDERED: Umeclidin/Vilant 62.5 MDI 62.5/25 mcg 14 INH ELLIPTA DEVICE INH SCH (09:00)
[2024-09-06] MEDS ORDERED: Aspirin EC 81 mg TAB.EC (enteric coated) PO SCH (09:00)
[2024-09-06] MEDS: Albuterol/Ipratropium NEB.SOL (2.5/0.5 MG) 3 ML NEB.SOLN INH SCH (09:11)
[2024-09-06] MEDS: Aspirin EC 81 mg TAB.EC (enteric coated) PO SCH (09:25)
[2024-09-06 10:04] LABS: ABS Lymphocytes 0.5 10^3/uL (1.0-4.8); ABS Neutrophils 5.6 10^3/uL (1.5-7.6); Eosinophil % 0.1 %; Hematocrit 42.7 % (38-53); Hemoglobin 14.2 g/dL (13.2-16.3); Lymphocyte % 7.5 %; Mean Corpuscular Hemoglobin 31.3 pg (27-33); Mean Corpuscular Hgb Conc 33.3 g/dL (31-36); Mean Corpuscular Volume 93.9 fL (80-97); Mean Platelet Volume 8.8 fL (7.5-11.2); Platelet Count 160 10^3/uL (150-450); Red Blood Count 4.55 10^6/uL (4.06-5.63); Red Cell Distribution Width 13.5 % (12-17); White Blood Count 6.1 10^3/uL (3.6-10.2)
[2024-09-06 11:04] LABS: Calcium 8.5 mg/dL (8.6-10.3); Creatinine, Serum 0.79 mg/dL (0.67-1.17); Magnesium 1.9 mg/dL (1.9-2.7); Potassium 4.2 mmol/L (3.5-5.0); eGFR CKD-EPI 96.8 (>60)
[2024-09-07] MEDS ORDERED: Azithromycin 250 MG in NS 0.9% 250 ml 250 ML IVPB SCH ×2 (08:00→16:45)
[2024-09-07] MEDS: Azithromycin 250 MG in NS 0.9% 250 ml 250 ML IVPB SCH (08:18)
[2024-09-07] MEDS ORDERED: Albuterol/Ipratropium NEB.SOL (2.5/0.5 MG) 3 ML NEB.SOLN INH PRN ×2 (08:47→11:00)
[2024-09-07] MEDS: Albuterol/Ipratropium NEB.SOL (2.5/0.5 MG) 3 ML NEB.SOLN INH PRN (09:13)
[2024-09-07 14:48] VITALS: BP 104/68
== END 2024-09-07 16:45 | disposition home or self-care (01) ==
LOC: EDHOLD 02:32 → ED 02:32 → MEDTELE 10:22
PROVIDERS: ADMIT Internal Medicine; ATTEND Internal Medicine

== ENCOUNTER 2024-11-08 01:25 | Inpatient (IN) ==
[2024-11-08 02:01] LABS: ABS Lymphocytes 0.7 10^3/uL (1.0-4.8); ABS Monocytes 0.7 10^3/uL (0.0-1.1); ABS Neutrophils 14.3 10^3/uL (1.5-7.6); Hematocrit 43.8 % (38-53); Hemoglobin 14.8 g/dL (13.2-16.3); Lymphocyte % 4.7 %; Mean Corpuscular Hemoglobin 32.1 pg (27-33); Mean Corpuscular Hgb Conc 33.8 g/dL (31-36); Mean Corpuscular Volume 94.8 fL (80-97); Mean Platelet Volume 8.7 fL (7.5-11.2); Platelet Count 175 10^3/uL (150-450); Red Blood Count 4.62 10^6/uL (4.06-5.63); Red Cell Distribution Width 14.4 % (12-17); White Blood Count 15.8 10^3/uL (3.6-10.2)
[2024-11-08 02:17] LABS: INR 0.88 (0.85-1.14)
[2024-11-08 02:21] LABS: Albumin/Globulin Ratio 1.7 (1-3); Calcium 9.1 mg/dL (8.6-10.3); Creatinine, Serum 0.87 mg/dL (0.67-1.17); Globulin 2.3 g/dL (2-4); Potassium 4.1 mmol/L (3.5-5.0); Total Bilirubin 0.3 mg/dL (0.2-1.0); Total Protein 6.3 g/dL (6.4-8.9)
[2024-11-08] MEDS: Albuterol 2.5mg/3 ml (0.083%) NEB.SOLN INH ONE ×3 (02:39→06:52)
[2024-11-08] MEDS: Lactated Ringers 1000 ml BAG 1,000 ML IV ONE (02:39)
[2024-11-08] MEDS: Magnesium Sulfate 2 gm BAG 2 GM/50 ML BAG IVPB ONE (02:53)
[2024-11-08 03:20] LABS: High Sensitivity Troponin 1 Hr 4 pg/mL (<20)
[2024-11-08] MEDS: Iohexol 350 (CONTRAST) 500 ML MDV IV ONE (03:47)
[2024-11-08] MEDS: methylPREDNISolone SOD SUCC 125 mg 2 ML VIAL IV ONE (07:18)
[2024-11-08 07:30] LABS: Venous Bicarbonate HCO3 22.7 mmol/L (24-28)
[2024-11-08] MEDS: Enoxaparin 40 MG/0.4 ML SYR SUBCUT SCH (13:28)
[2024-11-08] MEDS: methylPREDNISolone SOD SUCC 40 mg/ml 1 ml VIAL IV SCH (13:29)
[2024-11-08] MEDS: Aspirin EC 81 mg TAB.EC (enteric coated) PO SCH (13:29)
[2024-11-08] MEDS: Albuterol/Ipratropium NEB.SOL (2.5/0.5 MG) 3 ML NEB.SOLN INH STA (13:43)
[2024-11-08] MEDS: cefTRIAXone 1 gm/50 mL D5W 1 GM/50 ML BAG IV SCH (14:31)
[2024-11-08] MEDS: Azithromycin 500 mg/250 ml NS 500 MG/250 ML BAG IVPB SCH (15:16)
[2024-11-09] MEDS ORDERED: Ketamine HCL 50 mg/ml 10 ml VIAL (500 MG) ONE (02:56)
[2024-11-09] MEDS ORDERED: fentaNYL 100 mcg/2 ml 50 MCG/ML VIAL IV SLOW PU PRN (03:10)
[2024-11-09] MEDS: Succinylcholine 200 mg VIAL 20 mg/ml 10 ml VIAL (200 mg) ONE (03:21)
[2024-11-09] MEDS: Rocuronium 50 mg VIAL 10 mg/ml 5 ml VIAL (50 mg) ONE ×2 (03:21)
[2024-11-09] MEDS: Propofol 10 mg/ml 100 ML BTL 1,000 MG/100 ML BTL ONE (03:22)
[2024-11-09] MEDS: Norepinephrine 4 MG/250mL D5W 4,000 MCG/250 ML BAG IV ONE (03:22)
[2024-11-09] MEDS: Albuterol/Ipratropium NEB.SOL (2.5/0.5 MG) 3 ML NEB.SOLN INH SCH (03:26)
[2024-11-09] MEDS: Propofol 10 mg/ml 100 ML BTL 1,000 MG/100 ML BTL IV SCH (03:30)
[2024-11-09 03:41] LABS: PO2 Arterial 380 mmHg (80-100)
[2024-11-09 03:44] LABS: PCO2 Arterial 79 mmHg (35-45)
[2024-11-09] MEDS: Midazolam 5 mg/5 ml VIAL 1 mg/ml 5 ml VIAL (5 mg) IV SLOW PU ONE (03:48)
[2024-11-09] MEDS: Midazolam 5 mg/5 ml VIAL 1 mg/ml 5 ml VIAL (5 mg) ONE (03:52)
[2024-11-09 04:15] LABS: ABS Lymphocytes 0.6 10^3/uL (1.0-4.8); ABS Monocytes 0.4 10^3/uL (0.0-1.1); ABS Neutrophils 18.7 10^3/uL (1.5-7.6); Hematocrit 44.4 % (38-53); Hemoglobin 14.5 g/dL (13.2-16.3); Mean Corpuscular Hemoglobin 31.5 pg (27-33); Mean Corpuscular Hgb Conc 32.6 g/dL (31-36); Mean Corpuscular Volume 96.5 fL (80-97); Platelet Count 182 10^3/uL (150-450); Red Cell Distribution Width 14.8 % (12-17); White Blood Count 19.8 10^3/uL (3.6-10.2)
[2024-11-09 04:16] LABS: Urine Appearance Clear; Urine Bilirubin Negative (Negative); Urine Blood 1+ (Negative); Urine Color Light-Yellow; Urine Glucose 3+ (>=300 mg/dL) (Negative); Urine Ketones Negative (Negative); Urine Nitrite Negative (Negative); Urine Protein 1+ (>=30 mg/dL) (Negative); Urine Specific Gravity 1.012 (1.002-1.030); Urine Urobilinogen Negative (Negative)
[2024-11-09 04:21] LABS: Urine Bacteria Absent /HPF (Absent); Urine Red Blood Cell 1+(3-5/hpf) /HPF (0-Trace); Urine White Blood Cell Absent /HPF (0-Trace)
[2024-11-09] MEDS: Midazolam 5 mg/5 ml VIAL 1 mg/ml 5 ml VIAL (5 mg) IV SLOW PU PRN (04:43)
[2024-11-09] MEDS: Magnesium Sulfate 2 gm BAG 2 GM/50 ML BAG IVPB ONE (04:46)
[2024-11-09 05:01] LABS: Albumin 3.8 g/dL (3.5-5.7); Albumin/Globulin Ratio 1.7 (1-3); Calcium 8.8 mg/dL (8.6-10.3); Creatinine, Serum 0.78 mg/dL (0.67-1.17); Globulin 2.2 g/dL (2-4); Magnesium 2.1 mg/dL (1.9-2.7); Potassium 5.3 mmol/L (3.5-5.0); Total Bilirubin 0.3 mg/dL (0.2-1.0); eGFR CKD-EPI 97.1 (>60)
[2024-11-09] MEDS: Norepinephrine 4 MG/250mL NS 4,000 MCG/250 ML BAG IV SCH (06:09)
[2024-11-09] MEDS: Chlorhexidine MOUTHWASH 0.12% 15 ML UDC TOPICAL SCH (06:24)
[2024-11-09 07:45] LABS: Resp Rate 20
[2024-11-09 07:47] LABS: PCO2 Arterial 50 mmHg (35-45); PO2 Arterial 95 mmHg (80-100)
[2024-11-09] MEDS: Famotidine IV 10 MG/ML 2 ml VIAL (20 mg) IV SLOW PU SCH (08:11)
[2024-11-09] MEDS: DOXYcycline 100 MG in NS 0.9% 250 ml 250 ML IVPB SCH (08:16)
[2024-11-09] MEDS: methylPREDNISolone SOD SUCC 125 mg 2 ML VIAL IV ONE (09:52)
[2024-11-09] MEDS: Furosemide 40 mg/4 ml IV VIAL IV ONE (11:17)
[2024-11-09] MEDS: Albuterol/Ipratropium NEB.SOL (2.5/0.5 MG) 3 ML NEB.SOLN INH PRN (18:41)
[2024-11-10 04:40] LABS: ABS Lymphocytes 0.7 10^3/uL (1.0-4.8); ABS Monocytes 0.8 10^3/uL (0.0-1.1); Eosinophil % 0.1 %; Hematocrit 39.2 % (38-53); Hemoglobin 13.2 g/dL (13.2-16.3); Lymphocyte % 5.2 %; Mean Corpuscular Hemoglobin 32.1 pg (27-33); Mean Corpuscular Hgb Conc 33.7 g/dL (31-36); Mean Corpuscular Volume 95.3 fL (80-97); Mean Platelet Volume 9.1 fL (7.5-11.2); Platelet Count 153 10^3/uL (150-450); Red Blood Count 4.11 10^6/uL (4.06-5.63); Red Cell Distribution Width 14.4 % (12-17); White Blood Count 14.5 10^3/uL (3.6-10.2)
[2024-11-10 05:56] LABS: Blood Urea Nitrogen 22 mg/dL (6-24); CO2 Carbon Dioxide 23 mmol/L (22-32); Calcium 6.8 mg/dL (8.6-10.3); Chloride 111 mmol/L (101-111); Creatinine, Serum 0.69 mg/dL (0.67-1.17); Glucose 117 mg/dL (70-100); Sodium 139 mmol/L (135-145); eGFR CKD-EPI 100.8 (>60)
[2024-11-10 06:02] LABS: Anion Gap 5 mmol/L (2-16)
[2024-11-10] MEDS: Albuterol/Ipratropium NEB.SOL (2.5/0.5 MG) 3 ML NEB.SOLN INH SCH (13:53)
[2024-11-12 06:34] LABS: ABS Lymphocytes 0.6 10^3/uL (1.0-4.8); ABS Monocytes 0.4 10^3/uL (0.0-1.1); ABS Neutrophils 8.7 10^3/uL (1.5-7.6); ABS Nucleated RBC 0.01 10^3/ul; Hematocrit 42.6 % (38-53); Hemoglobin 14.3 g/dL (13.2-16.3); Lymphocyte % 6.2 %; Mean Corpuscular Hemoglobin 31.8 pg (27-33); Mean Corpuscular Hgb Conc 33.6 g/dL (31-36); Mean Corpuscular Volume 94.7 fL (80-97); Mean Platelet Volume 8.4 fL (7.5-11.2); Nucleated Red Blood Cells % 0.1 %/100WBC (0.0-0.8); Platelet Count 166 10^3/uL (150-450); Red Cell Distribution Width 14.2 % (12-17); White Blood Count 9.7 10^3/uL (3.6-10.2)
[2024-11-12 07:25] LABS: Calcium 8.8 mg/dL (8.6-10.3); Creatinine, Serum 0.68 mg/dL (0.67-1.17); Potassium 4.8 mmol/L (3.5-5.0); eGFR CKD-EPI 101.2 (>60)
[2024-11-12] MEDS: methylPREDNISolone SOD SUCC 40 mg/ml 1 ml VIAL IV SCH (16:43)
[2024-11-13] MEDS ORDERED: Albuterol HFA INHALER 8 gm MDI INH PRN (07:21)
[2024-11-13] MEDS: CMCS:FLUTICAS/UMECLI/VILANT 100-62.5-25 MDI (NF) INH SCH (09:16)
[2024-11-15 10:08] VITALS: BP 108/71
== END 2024-11-15 10:30 | disposition home or self-care (01) | DRG 208 ==
LOC: ED 01:25 → EDHOLD 11:35 → SUATTDRO 11:35 → ICU 12:39 → MEDTELE 11-10 15:16
PROVIDERS: ADMIT Internal Medicine Pulmonary Disease; ATTEND Student in an Organized Health Care Education/Training Program